=== PATIENT | female | born 1945 | race Caucasian/White ===

== ENCOUNTER 2019-05-21 05:48 | Inpatient (IN) | payer OTHER ==
[2019-05-09 12:43] VITALS: BMI 27.3
[2019-05-21] MEDS ORDERED: MIDAZOLAM HCL 2 MG/2 ML SINGLE DOSE VIAL ONE (07:17)
[2019-05-21] MEDS ORDERED: EPINEPHrine/PF 1 MG/1 ML (1:1,000) AMPULE ONE (07:23)
[2019-05-21] MEDS ORDERED: DEXMEDETOMIDINE HCL 200 MCG/2 ML IVPB ONE (07:23)
[2019-05-21] MEDS ORDERED: LIDOCAINE HCL 1% PRESERVATIVE FREE - 30ML VIAL ONE (07:24)
[2019-05-21] MEDS ORDERED: SODIUM BICARBONATE 8.4% 50 MEQ/50 ML VIAL ONE (07:24)
[2019-05-21] MEDS ORDERED: SCOPOLAMINE HYDROBROMIDE 1 PATCH PATCH.TD72 ONE (07:38)
[2019-05-21] MEDS ORDERED: BUPIVACAINE HCL/PF 0.5% (5MG/ML) 10 ML VIAL ONE (08:19)
[2019-05-21] MEDS ORDERED: LORazepam 0.5 MG TABLET PO PRN (09:21)
[2019-05-21] MEDS ORDERED: diazePAM 2 MG TABLET PO PRN (09:21)
[2019-05-21] MEDS ORDERED: ACETAMINOPHEN 325 MG TABLET (FP) PO PRN (09:22)
[2019-05-21] MEDS ORDERED: HYDROmorphone HCL CARPU-JECT 1 MG/1 ML DISP.SYRIN IVPB PRN (09:25)
[2019-05-21] MEDS ORDERED: PATIENT'S OWN MEDICATION (NON-FORMULARY) (Ramipril [Ramipril] 10 MG) PO SCH (10:00)
[2019-05-21] MEDS ORDERED: DEXAMETHASONE SOD PHOSPHATE 4 MG/1 ML VIAL ONE (10:19)
[2019-05-21] MEDS ORDERED: BUPIVACAINE HCL 0.25% 125 MG/50 ML VIAL ONE (10:19)
[2019-05-21] MEDS ORDERED: BUPIVACAINE HCL/PF 2.5 MG/ML - 30 ML VIAL IJ ONE (10:20)
[2019-05-21] MEDS ORDERED: GUM MASTIC/STORAX/MSAL/ALCOHOL 1 DRP DROPSBTL MC ONE (11:22)
[2019-05-21] MEDS ORDERED: LIDOCAINE 1%/EPI 1:100000 (20 ML MULTI DOSE VIAL) ONE (11:28)
[2019-05-21] MEDS ORDERED: LACTATED RINGERS SOLUTION 1,000 ML IV SCH (11:30)
--- NOTE | 2019-05-21 12:31 | SPEC ---
DATE OF OPERATION: 05/21/2019 PREOPERATIVE DIAGNOSIS: Recurrent complex chronically incarcerated ventral incisional hernia. POSTOPERATIVE DIAGNOSES: Recurrent complex chronically incarcerated ventral incisional hernia, hypertension, hypercholesterolemia, history of thrombophlebitis. PROCEDURE: Open bilateral component separation, repair of recurrent complex ventral incisional hernia with mesh, removal of foreign body, bilateral rectus sheath block (given by surgical dental assistant). SURGEON: John Rabago MD CORPORATE RECYCLING MANAGER: Shad Handy DO ANESTHESIA: Huseyin Gaviria MD (general) ESTIMATED BLOOD LOSS: Minimal. SPECIMEN: Foreign body and hernia sac. INDICATIONS FOR PROCEDURE: This is a 74-year-old female who in 2018 underwent a MARY CARMEN/BSO. She had a general surgeon at the time of that operation, primarily repair of chronically incarcerated umbilical hernia. Within 2 months, that recurred and therefore she was taken back to the operating room by the same general surgeon for a bilateral component separation and repair of a recurrent hernia. She now has a large recurrence in the upper abdomen and is here for a 3rd repair. Patient identified and appropriately positioned on the operative table. After placement of general anesthesia, the abdomen was prepped and draped in the usual sterile fashion with ChloraPrep. The 1st aspect of the incision was performed by Dr. Jeffrey for the abdominal skin mobilization. Please refer to her dictation. At this point, I came in after the skin had been mobilized, the hernia identified in the abdomen as described in the H&P. The hernia sac was then circumferentially isolated with electrocautery. The fascia of the rectus sheath on the right was divided superiorly, the rectus muscle identified. The posterior rectus space was then subsequently entered. In doing so, the old mesh was encountered and this patient had what appeared to be a Bard circular disk mesh. The hernia had eroded above the mesh and recurred at this level. Most of the sac was off to the patient's left side. Given this finding, I thought the old mesh was in the preperitoneal space and therefore the majority of the mesh was left intact in the preperitoneal space. A portion of the mesh had to be sharply excised because it had become too big once the flap was mobilized. This portion of the mesh that was excised was done under direct vision and sent as foreign body. At this point, the posterior rectus space was subsequently developed out laterally with the cautery, portions of where the rectus muscle was adherent to the mesh, the muscle itself was divided with the cautery. Once outside of the old mesh, the fascia of the transversus was identified along with the junction of the obliques and rectus. This was sharply divided. The myofascial separation was then allowed placement of a very large piece of mesh above the transversus. This was taken approximately 5 inches above and below the actual defect. The myofascial separation was done on the patient's right side and a similar approach was then performed on the left. On the left side the retrorectus space was identified by dividing the anterior sheath, the muscle identified and subsequently off the anterior sheath to identify the posterior sheath and then at this point the muscle was bluntly off the posterior sheath, where it was previously attached to the old mesh. This was divided with the cautery as needed. Again, a myofascial separation was done, allowing separation of the junction of the rectus oblique and transversus, and again it was taken approximately 5 inches above and below the actual defect. Once the myofascial separation was completed on both sides, the posterior sheath was then reapproximated, even though the abdominal cavity was not entered, to tighten up the posterior sheath. The piece of mesh that was intact was left in place except for a small portion that was removed due to its overly large size. Next, the defect was measured and a large 50 x 50 (Versatex ) mesh was used for the repair. This hospital did not have a 30 x 30, and this 50 x 50 was cut down to approximately 30 x 30 size. A 16 x 20 piece of AMOS Bio was also used. The 2 pieces of mesh were sewn together in a hybrid fashion with interrupted 3-0 Vicryl sutures. The mesh was placed into the posterior rectus space above the transversus with the AMOS Bio side touching transversus and the Versatex touching the rectus muscle. The mesh fanned out laterally and superiorly and inferiorly in all directions and then anchored with the AbsorbaTack anchor. The mesh was irrigated, the operative field noted to be hemostatic. A preliminary sponge and instrument count was performed and noted to be accurate at this point. The midline fascia was then reapproximated with a running 0 PDS suture. At this point, the sponge and instrument counts were done again and noted to be accurate. Dr. Jeffrey then subsequently finished off the abdominoplasty. Please refer to her dictation. Prior to closure of the midline anterior fascia, the 1st assistant tennis professional performed a bilateral rectus sheath block by giving direct injection into the sheath, a total of 30 mL of 0.25% Marcaine with 4 mg of Decadron. Thomas VELA [id number] cc: Catalina Avila MD MTDFeliz
[2019-05-21] MEDS: D5-1/2NS+20 MEQ KCL - 20 MEQ/1,000 ML INFUS.BAG IV SCH (14:49)
[2019-05-21] MEDS: oxyCODONE HCL 5 MG TABLET PO PRN ×2 (15:46→19:46)
[2019-05-21] MEDS: PANTOPRAZOLE SODIUM 40 MG VIAL IVPUSH SCH (20:24)
[2019-05-21] MEDS: ONDANSETRON 4 MG/2 ML VIAL IVPUSH PRN (20:25)
[2019-05-21] MEDS ORDERED: ATORVASTATIN CA 10 MG TABLET (FP) PO SCH (22:00)
[2019-05-21] MEDS ORDERED: PATIENT'S OWN MEDICATION (NON-FORMULARY) (Simvastatin [Simvastatin] 20 MG) PO SCH (22:00)
[2019-05-21] MEDS ORDERED: IBUPROFEN 400 MG TABLET (FP) PO PRN (22:27)
[2019-05-21] MEDS ORDERED: MAG HYDROX/AL HYDROX/SIMETH 30 ML UNIT-DOSE CUP PO PRN (22:27)
[2019-05-21] MEDS ORDERED: ONDANSETRON 4 MG/2 ML VIAL IVPUSH ONE (23:20)
[2019-05-22] MEDS ORDERED: METOCLOPRAMIDE HCL INJECTION 10 MG/2 ML VIAL IVPUSH ONE (00:30)
[2019-05-22] MEDS: ONDANSETRON 4 MG/2 ML VIAL IVPUSH PRN (06:57)
[2019-05-22] MEDS ORDERED: AMOX TR/POT CLAV 875MG/125MG TABLETS (FP) PO SCH (08:00)
[2019-05-22] MEDS ORDERED: IBUPROFEN 800 MG/8 ML IJ IVPB PRN (09:44)
[2019-05-22] MEDS: PANTOPRAZOLE SODIUM 40 MG VIAL IVPUSH SCH (09:45)
[2019-05-22] MEDS ORDERED: ONDANSETRON 4 MG/2 ML VIAL IVPUSH PRN (09:45)
[2019-05-22] MEDS: D5-1/2NS+20 MEQ KCL - 20 MEQ/1,000 ML INFUS.BAG IV SCH (09:45)
[2019-05-22] MEDS ORDERED: RAMIPRIL 5 MG CAPSULE (FP) PO SCH (10:00)
[2019-05-22] MEDS ORDERED: amLODIPine BESYLATE 2.5 MG TABLET (FP) PO SCH (10:00)
[2019-05-22] MEDS ORDERED: ENOXAPARIN NA (PORCINE) 40 MG/0.4 ML DISP.SYRIN SQ SCH (10:00)
--- NOTE | 2019-05-22 12:18 | PN ---
Progress Note, Physician Chief Complaint: POD1 s/p hernia repair/abdominoplasty - Current Medication List Current Medications: Active Medications Acetaminophen (Tylenol -) 650 mg PO Q4H PRN PRN Reason: FEVER Al Hydroxide/Mg Hydroxide (Mylanta Oral Suspension -) 30 ml PO Q6H PRN PRN Reason: INDIGESTION Amlodipine Besylate (Norvasc -) 2.5 mg PO DAILY [facility] Last Admin: 05/22/19 09:45 Dose: 2.5 mg Amoxicillin/Clavulanate Potassium (Augmentin - 875mg Tablet) 1 tab PO BIDWM [facility] Last Admin: 05/22/19 09:42 Dose: Not Given Atorvastatin Calcium (Lipitor -) 10 mg PO HS [facility] Last Admin: 05/21/19 22:58 Dose: Not Given Diazepam (Valium -) 4 mg PO PRN PRN PRN Reason: ANXIETY Enoxaparin Sodium (Lovenox -) 40 mg SQ DAILY [facility] Last Admin: 05/22/19 09:46 Dose: Not Given Hydromorphone HCl (Dilaudid Injection -) 1 mg IVPB Q3H PRN PRN Reason: PAIN LEVEL 7 - 10 Lactated Ringer's (Lactated Ringers Solution) 1,000 mls @ 125 mls/hr IV ASDIR [facility] Ibuprofen (Motrin -) 800 mg PO Q6H PRN PRN Reason: PAIN LEVEL 4-6 Ibuprofen (Caldolor Injection -) 800 mg IVPB Q6H PRN PRN Reason: PAIN 1-5 Lorazepam (Ativan -) 0.5 mg PO DAILY PRN PRN Reason: INSOMNIA Last Admin: 05/22/19 02:16 Dose: 0.5 mg Ondansetron HCl (Zofran Injection) 4 mg IVPUSH Q6H PRN PRN Reason: NAUSEA AND/OR VOMITING Oxycodone HCl (Roxicodone -) 7.5 mg PO Q4H PRN PRN Reason: PAIN LEVEL 4 - 6 Last Admin: 05/21/19 19:46 Dose: 7.5 mg Pantoprazole Sodium (Protonix Iv) 40 mg IVPUSH DAILY [facility] Last Admin: 05/22/19 09:45 Dose: 40 mg Ramipril (Altace -) 10 mg PO DAILY [facility] Last Admin: 05/22/19 09:45 Dose: 10 mg - Objective Vital Signs: Vital Signs Temperature 97.8 F 05/22/19 05:55 Pulse Rate 101 H 05/22/19 05:55 Respiratory Rate 19 05/22/19 05:55 Blood Pressure 168/88 05/22/19 05:55 O2 Sat by Pulse Oximetry (%) 95 05/22/19 08:22 Assessment/Plan Pt's pain was well-controlled overnight, but had N/V, which at this point is mostly resolved. She is able to ambulate without issue, and is looking forwarwd to being discharged this afternoon. VSS, no anesthetic complications/ issues noted
--- NOTE | 2019-05-22 13:53 | DS ---
DATE OF ADMISSION: 05/21/2019 DATE OF DISCHARGE: 05/22/2019 ADMITTING DIAGNOSIS: Complex incisional hernia, recurrent. DISCHARGE DIAGNOSIS: Complex incisional hernia, recurrent. BRIEF HISTORY: This 74-year-old female went to [facility] for surgical management of a complex, recurrent incisional hernia. She underwent a repair of this hernia utilizing component separation, myofascial release, and mesh. Please reference Dr. John Rabago's operative note from May 21. She also underwent an abdominoplasty by Dr. Jeffrey. Please reference that operative note as well. Postoperatively, she is doing well. She is ambulating, voiding. She is tolerating diet, and her pain is well controlled with oral analgesics. She will go home today, May 22. She will go home on a regular diet. She has a new prescription for Percocet which she will take as needed for pain. She will resume her usual home medications of Norvasc, Zyrtec, Valium, lorazepam, Prilosec, oxybutynin, Ramipril, and simvastatin. She will empty her Bowen-Rogers drains daily and record their amount or sooner when full. She will sponge bathe. She will follow with Dr. Jeffrey regarding drain removal as well as Wound Care. She should make an appointment within the next week. She will follow with Dr. Rabago in approximately 2-3 weeks' time for her postoperative check. She will not lift anything more than [address] She is okay to walk, okay to climb stairs. At the time of her discharge, she is afebrile. DO ABBIE TERRY/[id number]
[2019-05-22 14:34] VITALS: BP 150/70; PULSE 100; TEMP 98.7
--- NOTE | 2019-05-26 13:03 | PATH ---
Surgical Pathology Report Patient Name: KAY ALVAREZ Med. Rec. #: [id number] /Age/Gender: 1945 (Age: 74) / F Account: [id number] Location: [facility] MED-SURG Taken: 05/21/2019 Received: 05/21/2019 Reported: 05/26/2019 Physicians: John Rabago Specimen(s) Received A: HERNIA SAC WITH FOREIGN BODY B: ABDOMINAL SKIN AND TISSUE (GROSS ONLY) Clinical History Bilateral component, separation of complex incarcerated ventral hernia, repair Final Diagnosis A. HERNIA SAC WITH FOREIGN BODY, REPAIR: FIBROCOLLAGENOUS TISSUE WITH SKELETAL MUSCLE SHOWING CHRONIC INFLAMMATION, FOREIGN BODY GIANT CELL REACTION AND GRANULATION TISSUE FORMATION. MESH MATERIAL, DESCRIBED (GROSS EXAMINATION ONLY). B. ABDOMINAL SKIN AND TISSUE, ABDOMINOPLASTY: SKIN AND ADIPOSE TISSUE, DESCRIBED (GROSS EXAMINATION ONLY). Electronically Signed Jayna Cam M.D. Gross Description A. Received in formalin, labeled "hernia sac with foreign body" is a 6.8 x 5.5 x 1.0 cm portion of fibromembranous tissue with adipose tissue at one aspect. Also received is a 4.4 x 0.9 x 0.3 cm portion of mesh material. Powerplant Operator sections are submitted in one cassette (gross examination only of mesh material). B. Received in formalin, labeled "abdominal skin and tissue" is a 37.5 x 17.6 cm portion of light mcclendon skin excised to a depth of 2.3 cm. No gross lesions are identified. For gross examination only. AE/05/22/2019 ebram/05/22/2019
[2019-05-30] MEDS ORDERED: PIPERACILLIN/TAZOB 3.375 GM 3.375 GM in DEXTROSE 5%-WATER - 50 ML IVPB SCH (04:00)
== END 2019-05-22 15:53 | disposition home or self-care (01) | DRG 355 ==
LOC: FASU 05:48 → FM/S 09:22
PROVIDERS: ADMIT Surgery; ATTEND Surgery
PROC: 0JC80ZZ Extirpation of Matter from Abdomen Subcutaneous Tissue and Fascia, Open Approach (ICD-10-PCS; 2019-05-21)
PROC: 0WUF0JZ Supplement Abdominal Wall with Synthetic Substitute, Open Approach (ICD-10-PCS; principal; 2019-05-21 08:34)
PROC: 0WPF0JZ Removal of Synthetic Substitute from Abdominal Wall, Open Approach (ICD-10-PCS; 2019-05-21 08:34)
DX: K43.0 Incisional hernia with obstruction, without gangrene (principal); I10 Essential (primary) hypertension; E78.00 Pure hypercholesterolemia, unspecified; E86.0 Dehydration; D72.829 Elevated white blood cell count, unspecified; K21.9 Gastro-esophageal reflux disease without esophagitis
CPT/HCPCS: 88300-TC; 88304-TC; 94760; 97116-GP; 97161-GP

== ENCOUNTER 2019-05-29 17:24 | Inpatient (IN) | payer OTHER ==
[2019-05-29 17:28] VITALS: BMI 27.3
[2019-05-29] MEDS ORDERED: SODIUM CHLORIDE 1,000 ML IV STA ×2 (18:02→23:08)
--- NOTE | 2019-05-29 18:02 | PDOC ---
History of Present Illness - General Chief Complaint: Weakness Stated Complaint: WEAKNESS Time Seen by Provider: 05/29/19 17:53 - History of Present Illness Initial Comments: 05/31/19 21:38 Chief complaint: Generalized weakness and fatigue HPI: Patient had a repair of a ventral hernia with mesh, as well as a tummy tuck at the same time, approximately 1 week ago. Discharge from the hospital 2 days ago. Was feeling well, but this morning suddenly felt worse, with vague symptoms of generalized weakness, fatigue, and lack of well-being. She contacted her surgeon, Dr. Jeffrey, who instructed her to come to the emergency room for blood work and who will see her in the ER for evaluation. Review of systems: She denies fever/chills, abdominal pain, vomiting, diarrhea. Urinary tract symptoms, vaginal bleeding or discharge, hematemesis, melena, bloody stool, headache, URI symptoms, sore throat, cough. Remainder of systems reviewed and negative Physical exam: Afebrile, vital signs normal. Alert and oriented well-developed well-nourished no acute distress No pallor or icterus. PERRLA, fundi benign, ENT clear Neck supple without bruit mass or nodes Lungs clear to P&A CV regular without murmur rub or gallop Abdomen nondistended. Bowel sounds normal. Soft without mass tenderness organomegaly. Wound dressing is in place and 2 drains are relatively dry, without blood or pus. Neurologically intact Impression: Vague systemic symptoms, rule out wound infection or abscess, sepsis. Plan: CBC, chemistries, blood cultures, and further evaluation by surgery. Signed out to Dr. Keys at 7 PM pending surgical consultation. Past History - Past Medical History Allergies/Adverse Reactions: Allergies Allergy/AdvReac Type Severity Reaction Status Date / Time ciprofloxacin [From Cipro] AdvReac Vomiting Verified 05/29/19 17:25 morphine AdvReac Vomiting Verified 05/29/19 17:25 seasonal Allergy Uncoded 05/29/19 17:25 Home Medications: Ambulatory Orders Amlodipine Besylate 2.5 mg PO DAILY 05/09/19 Cetirizine HCl [Zyrtec -] 10 mg PO DAILY PRN 05/09/19 Lorazepam 0.5 mg PO DAILY PRN 05/09/19 Omeprazole 20 mg PO AM 05/09/19 Oxybutynin Chloride 5 mg PO DAILY 05/09/19 Ramipril 10 mg PO DAILY 05/09/19 Simvastatin 20 mg PO HS 05/09/19 Amox-Tr/K Cl [Augmentin 875-125mg Tablet -] 1 tab PO BIDWM #14 tablet 05/22/19 Ibuprofen [Motrin -] 800 mg PO Q6H PRN tablet 05/22/19 Anemia: No Asthma: No Cancer: No Cardiac Disorders: No CVA: No COPD: No CHF: No Dementia: No Diabetes: No GI Disorders: Yes (acid reflux, hernia) Disorders: No HTN: Yes Hypercholesterolemia: Yes Liver Disease: No Seizures: No Thyroid Disease: No - Surgical History Abdominal Surgery: Yes (hernia repair x2) Appendectomy: Yes Cardiac Surgery: No Cholecystectomy: Yes Lung Surgery: No Neurologic Surgery: No Orthopedic Surgery: Yes (vitaly knee arthroscopy) - Psycho Social/Smoking Cessation Hx Smoking History: Never smoked Have you smoked in the past 12 months: No If you are a former smoker, when did you quit?: 30 y ago Information on smoking cessation initiated: No Hx Alcohol Use: No Drug/Substance Use Hx: No Substance Use Type: Alcohol Hx Substance Use Treatment: No *Physical Exam - Vital Signs Last Vital Signs Temp Pulse Resp BP Pulse Ox 98.3 F 121 H 18 147/84 97 05/29/19 17:25 05/29/19 17:25 05/29/19 17:25 05/29/19 17:25 05/29/19 17:25 ED Treatment Course - LABORATORY CBC & Chemistry Diagram: 05/31/19 10:09 05/31/19 10:09 Discharge - Discharge Information Problems reviewed: Yes Clinical Impression/Diagnosis: Dehydration, H/O ventral hernia repair, S/P abdominoplasty Abdominal pain Qualifiers: Abdominal location: generalized Qualified Code(s): R10.84 - Generalized abdominal pain Condition: Stable - Admission Yes - Follow up/Referral - Patient Discharge Instructions - Post Discharge Activity
[2019-05-29 18:52] LABS: ALBUMIN 3.5 g/dl (3.4-5.0); BILIRUBIN,TOTAL 0.7 mg/dl (0.2-1); CALCIUM 8.4 mg/dl (8.5-10); CREATININE 0.7 mg/dl (0.55-1.3); TOT PROT 6.8 g/dl (6.4-8.2)
[2019-05-29 19:09] LABS: BASO % 1.4 % (0-2.0); EOS % 0.6 % (0-4.5); HEMATOCRIT 32.1 % (32.4-45.2); HEMOGLOBIN 10.7 GM/dl (10.7-15.3); LYMPH % 5.3 % (8-40); MCH 30.3 pg (25.7-33.7); MCHC 33.4 g/dl (32.0-36.0); MEAN CELL VOLUME 90.7 fl (80-96); MEAN PLT VOLUME 7.9 fl (7.5-11.1); MONO % 3.5 % (3.8-10.2); NEUT % 89.2 % (42.8-82.8); PLATELET COUNT 421 K/MM3 (134-434); RBC 3.54 M/mm3 (3.60-5.2); RDW 13.1 % (11.6-15.6); WHITE BLOOD COUNT 12.4 K/mm3 (4.0-10.8)
--- NOTE | 2019-05-29 19:55 | PDOC ---
*Physical Exam - Vital Signs Last Vital Signs Temp Pulse Resp BP Pulse Ox 97.8 F 98 H 16 152/78 98 05/29/19 18:55 05/29/19 18:55 05/29/19 18:55 05/29/19 18:55 05/29/19 18:55 ED Treatment Course - LABORATORY CBC & Chemistry Diagram: 05/29/19 18:15 05/29/19 18:15 - ADDITIONAL ORDERS Additional order review: Laboratory Results 05/29/19 05/29/19 05/29/19 18:15 18:15 18:00 Sodium 135 L Potassium 4.0 Chloride 103 Carbon Dioxide 24 Anion Gap 8 BUN 11.0 Creatinine 0.7 Est GFR (CKD-EPI)AfAm 99.62 Est GFR (CKD-EPI)NonAf 85.95 Random Glucose 109 H Calcium 8.4 L Total Bilirubin 0.7 AST 38 H ALT 39 Alkaline Phosphatase 118 H Creatine Kinase 69 Troponin I < 0.03 Total Protein 6.8 Albumin 3.5 Urine Color Yellow Urine Appearance Clear Urine pH 5.5 Urine Protein 1+ H Urine Glucose (UA) Negative Urine Ketones 3+ H Urine Blood Negative Urine Nitrite Negative Urine Bilirubin Negative Urine Urobilinogen 0.2 Ur Leukocyte Esterase Negative Urine RBC 0-2 Urine WBC 0-2 Urine Bacteria Few 05/29/19 18:15 RBC 3.54 L MCV 90.7 MCHC 33.4 RDW 13.1 MPV 7.9 Neutrophils % 89.2 H Lymphocytes % 5.3 L Monocytes % 3.5 L Eosinophils % 0.6 Basophils % 1.4 - Medications Given in the ED: ED Medications Discontinued Medications Generic Name Dose Route Start Last Admin Trade Name Freq PRN Reason Stop Dose Admin Sodium Chloride 1,000 mls @ 1,000 mls/hr 05/29/19 18:02 05/29/19 18:25 Normal Saline - IV 05/29/19 19:01 1,000 mls/hr ASDIR STA Administration Medical Decision Making - Medical Decision Making 05/29/19 19:53 pt signed out from Dr Max at 7pm pending labs/workup/reeval and surg eval Vital Signs Temp Pulse Resp BP Pulse Ox 97.8 F 98 H 16 152/78 98 05/29/19 18:55 05/29/19 18:55 05/29/19 18:55 05/29/19 18:55 05/29/19 18:55 In summary, 74-year-old female status post ventral hernia repair and tummy tuck with surgeons Dr. Faye and Dr. Sakshi waller, respectively. Patient is awaiting consultation evaluation by surgical appliance fitter this evening. Laboratory work results are reviewed and generally within normal limits, mild leukocytosis noted 12 K otherwise no systemic features. Initial tachycardia has improved, afebrile. Patient was given IVF, cultures pending. 05/29/19 20:00 on reeval - pt c/o malaise and feeling unwell supposed to be on augmentin after surgery, but stopped taking on her own volition x 4 days because it did not sit well with her stomach will given IV unasyn, analgesia, IV tylenol, reassess Abdomen exam with DENISA drains in place, surgical sites healing primary doctor: Dr Betzaida Acevedo seen by Dr Johnson at bedside, DENISA drains removed pt feels improved agree with plan for overnight observation, hydration, recheck labs in the AM, supportive care, IV abx will be seen with Dr Faye and Dr Jeffrey in the AM for reeval/serial exam and surgical sites. admit to hospitalist. Dr Wallace, s/o to ELICIA Sandoval with care 05/29/19 20:56 05/29/19 21:44 05/29/19 21:44 Discharge - Discharge Information Problems reviewed: Yes Clinical Impression/Diagnosis: Dehydration, H/O ventral hernia repair, S/P abdominoplasty Abdominal pain Qualifiers: Abdominal location: generalized Qualified Code(s): R10.84 - Generalized abdominal pain Condition: Stable - Admission Yes - Follow up/Referral - Patient Discharge Instructions - Post Discharge Activity
[2019-05-29] MEDS ORDERED: ACETAMINOPHEN 1000 MG/100 ML VIAL (NON FORMULARY) IVPB ONE (20:16)
[2019-05-29] MEDS ORDERED: AMPICILLIN NA/SULBACTAM NA 1.5 GM in SODIUM CHLORIDE 100 ML IVPB ONE (20:16)
[2019-05-29] MEDS ORDERED: ACETAMINOPHEN INJECTION 100 ML IVPB ONE (20:28)
[2019-05-29] MEDS ORDERED: AMPICILLIN NA/SULBACTAM NA 1.5 GM VIAL ONE (20:28)
[2019-05-29] MEDS ORDERED: SODIUM CHLORIDE 1,000 ML IV SCH (20:30)
--- NOTE | 2019-05-29 21:51 | HP ---
CHIEF COMPLAINT: Weakness PCP: Dr. Betzaida Acevedo Surgeons: Dr. Rabago, Dr. Chavez HISTORY OF PRESENT ILLNESS: 74 year-old female with a PMH significant for HTN, HLD, thrombophlebitis, GERD, anxiety, and a chronically incarcerated recurrent ventral hernia s/p multiple repairs, most recently on 05/21/[address] Rabago. At the same time patient underwent an abdominoplasty with Dr. Miranda. She was discharged on 05/22 with two DENISA drains in place and with a prescription for augmentin for 7 days. Patient stopped taking the augmentin after 2-3 days due to stomach upset. She has been emptying her drains of thin, reddish/pinkish fluid, has not seen any pus. ER course was notable for: (1) WBC 12.4k, p121 (2) Unasyn x 1; NS x 1L Recent Travel: No PAST MEDICAL HISTORY: Hypertension Hyperlipidemia Thrombophlebitis GERD Anxiety PAST SURGICAL HISTORY: [facility] (April 2018, Umbilicial hernia repair (April 2018, revised June 2018, [facility]) Hernia repair and abdominoplasty 05/21/19 (Mandi Rabago [place]) Bilateral knee arthroscopy Cholecystectomy Appendectomy Social History: Smoking: no Alcohol: social Drugs: no Allergies ciprofloxacin [From Cipro] Adverse Reaction (Verified 05/29/19 17:25) Vomiting morphine Adverse Reaction (Verified 05/29/19 17:25) Vomiting seasonal Allergy (Uncoded 05/29/19 17:25) HOME MEDICATIONS: Home Medications Medication Instructions Recorded Amlodipine Besylate 2.5 mg PO DAILY 05/09/19 Cetirizine HCl [Zyrtec -] 10 mg PO DAILY PRN 05/09/19 Lorazepam 0.5 mg PO DAILY PRN 05/09/19 Omeprazole 20 mg PO AM 05/09/19 Oxybutynin Chloride 5 mg PO DAILY 05/09/19 Ramipril 10 mg PO DAILY 05/09/19 Simvastatin 20 mg PO HS 05/09/19 Amox-Tr/K Cl [Augmentin 875-125mg 1 tab PO BIDWM #14 tablet 05/22/19 Tablet -] Ibuprofen [Motrin -] 800 mg PO Q6H PRN tablet 05/22/19 REVIEW OF SYSTEMS CONSTITUTIONAL: +fever at home 100.6, weakness, fatigue, loss of appetite Absent: chills, diaphoresis, weight change HEENT: Absent: rhinorrhea, nasal congestion, throat pain, throat swelling, difficulty swallowing, mouth swelling, ear pain, eye pain, visual changes CARDIOVASCULAR: Absent: chest pain, syncope, palpitations, irregular heart rate, lightheadedness , peripheral edema RESPIRATORY: Absent: cough, shortness of breath, dyspnea with exertion, orthopnea, wheezing, stridor, hemoptysis GASTROINTESTINAL: Absent: abdominal pain, abdominal distension, nausea, vomiting, diarrhea, constipation, melena, hematochezia GENITOURINARY: Absent: dysuria, frequency, urgency, hesitancy, hematuria, flank pain, genital pain MUSCULOSKELETAL: Absent: myalgia, arthralgia, joint swelling, back pain, neck pain SKIN: Absent: rash, itching, pallor HEMATOLOGIC/IMMUNOLOGIC: Absent: easy bleeding, easy bruising, lymphadenopathy, frequent infections ENDOCRINE: Absent: unexplained weight gain, unexplained weight loss, heat intolerance, cold intolerance NEUROLOGIC: +headache Absent: headache, focal weakness or paresthesias, dizziness, unsteady gait, seizure, mental status changes, bladder or bowel incontinence PSYCHIATRIC: Absent: anxiety, depression, suicidal or homicidal ideation, hallucinations. PHYSICAL EXAMINATION Vital Signs - 24 hr 05/29/19 05/29/19 17:25 18:55 Temperature 98.3 F 97.8 F Pulse Rate 121 H Pulse Rate [ 98 H Left Apical] Respiratory 18 16 Rate Blood Pressure 147/84 Blood Pressure 152/78 [Left Arm] O2 Sat by Pulse 97 98 Oximetry (%) GENERAL: Awake, alert, and fully oriented, in no acute distress. HEAD: Normal with no signs of trauma. EYES: Pupils equal, round and reactive to light, extraocular movements intact, sclera anicteric, conjunctiva clear. LUNGS: Breath sounds equal, clear to auscultation bilaterally. No wheezes, and no crackles. No accessory muscle use. HEART: Regular rate and rhythm, S1 and S2 ABDOMEN: Transverse lower abdominal incision, sutures intact, edges well- approximated, no exudate, no erythema, no fluctuance; scant serosanguinous drainage from two removed DENISA drain sites on distal ends + MUSCULOSKELETAL: Normal range of motion at all joints. No bony deformities or tenderness. No CVA tenderness. UPPER EXTREMITIES: 2+ pulses, warm, well-perfused. No cyanosis. No clubbing. No peripheral edema. LOWER EXTREMITIES: 2+ pulses, warm, well-perfused. No calf tenderness. No peripheral edema. NEUROLOGICAL: Cranial nerves II-XII intact. Normal speech. Laboratory Results - last 24 hr 05/29/19 05/29/19 05/29/19 18:00 18:15 18:15 WBC RBC Hgb Hct MCV MCH MCHC RDW Plt Count MPV Absolute Neuts (auto) Neutrophils % Lymphocytes % Monocytes % Eosinophils % Basophils % Sodium Potassium Chloride Carbon Dioxide Anion Gap BUN Creatinine Est GFR (CKD-EPI)AfAm Est GFR (CKD-EPI)NonAf Random Glucose Calcium Total Bilirubin AST ALT Alkaline Phosphatase Creatine Kinase Troponin I < 0.03 Total Protein Albumin Lipase 105 Urine Color Yellow Urine Appearance Clear Urine pH 5.5 Urine Protein 1+ H Urine Glucose (UA) Negative Urine Ketones 3+ H Urine Blood Negative Urine Nitrite Negative Urine Bilirubin Negative Urine Urobilinogen 0.2 Ur Leukocyte Esterase Negative Urine RBC 0-2 Urine WBC 0-2 Urine Bacteria Few 05/29/19 05/29/19 18:15 18:15 WBC 12.4 H RBC 3.54 L Hgb 10.7 Hct 32.1 L MCV 90.7 MCH 30.3 MCHC 33.4 RDW 13.1 Plt Count 421 MPV 7.9 Absolute Neuts (auto) 11.0 Neutrophils % 89.2 H Lymphocytes % 5.3 L Monocytes % 3.5 L Eosinophils % 0.6 Basophils % 1.4 Sodium 135 L Potassium 4.0 Chloride 103 Carbon Dioxide 24 Anion Gap 8 BUN 11.0 Creatinine 0.7 Est GFR (CKD-EPI)AfAm 99.62 Est GFR (CKD-EPI)NonAf 85.95 Random Glucose 109 H Calcium 8.4 L Total Bilirubin 0.7 AST 38 H ALT 39 Alkaline Phosphatase 118 H Creatine Kinase 69 Troponin I Total Protein 6.8 Albumin 3.5 Lipase Urine Color Urine Appearance Urine pH Urine Protein Urine Glucose (UA) Urine Ketones Urine Blood Urine Nitrite Urine Bilirubin Urine Urobilinogen Ur Leukocyte Esterase Urine RBC Urine WBC Urine Bacteria ASSESSMENT/PLAN: 74 year-old female with a PMH significant for HTN, HLD, thrombophlebitis, GERD, anxiety, and a chronically incarcerated recurrent ventral hernia s/p multiple repairs, most recently on 05/21/19 with abdominoplasty. Sepsis s/p complex hernia repair and abdominoplasty --POD #8 --T100.6, WBC 12.4k, p121 on admission --DENISA drains removed in ED --start Zosyn; ID consult --NS x 1L bolus now --lactic acid pending Hypertension --hold anti-hypertensives for now due to possible sepsis Hyperlipidemia --hold PO meds for now Thrombophlebitis --not on meds GERD --hold PO meds for now Anxiety --continue lorazepam FEN Fluids: NS@100mL/hr Electrolytes: replete as indicated Nutrition: NPO after midnight DVT prophylaxis: SCDs, oob, ambulation Physical therapy Dispo: continues to require inpatient care. Full code. Visit type - Emergency Visit Emergency Visit: Yes ED Registration Date: 05/29/19 Care time: The patient presented to the Emergency Department on the above date and was hospitalized for further evaluation of their emergent condition. - New Patient This patient is new to me today: Yes Date on this admission: 05/29/19 - Critical Care Critical Care patient: No
[2019-05-30] MEDS ORDERED: PIPERACILLIN/TAZOBACTAM 3.375 GM VIAL IVPB ONE ×3 (03:08→17:52)
[2019-05-30] MEDS ORDERED: DEXTROSE 5%-WATER - 50 ML IVPB ONE ×3 (03:08→17:53)
[2019-05-30] MEDS: PIPERACILLIN/TAZOB 3.375 GM 3.375 GM in DEXTROSE 5%-WATER - 50 ML IVPB SCH ×3 (03:15→18:01)
[2019-05-30] MEDS ORDERED: PIPERACILLIN/TAZOB 3.375 GM 3.375 GM in DEXTROSE 5%-WATER - 50 ML IVPB SCH (04:00)
[2019-05-30 08:06] LABS: BASO % 0.3 % (0-2.0); EOS % 0.5 % (0-4.5); HEMATOCRIT 28.4 % (32.4-45.2); HEMOGLOBIN 9.8 GM/dl (10.7-15.3); LYMPH % 5.2 % (8-40); MCHC 34.3 g/dl (32.0-36.0); MEAN CELL VOLUME 90.3 fl (80-96); MEAN PLT VOLUME 7.5 fl (7.5-11.1); MONO % 4.6 % (3.8-10.2); NEUT % 89.4 % (42.8-82.8); PLATELET COUNT 343 K/MM3 (134-434); RBC 3.15 M/mm3 (3.60-5.2); RDW 12.9 % (11.6-15.6); WHITE BLOOD COUNT 14.5 K/mm3 (4.0-10.8)
[2019-05-30 08:13] LABS: ALBUMIN 2.8 g/dl (3.4-5.0); CALCIUM 7.7 mg/dl (8.5-10); CREATININE 0.7 mg/dl (0.55-1.3); MAGNESIUM 1.8 mg/dL (1.8-2.4); PHOSPHOROUS 2.9 mg/dl (2.5-4.9); POTASSIUM 3.7 mmol/L (3.5-5.1); TOT PROT 5.5 g/dl (6.4-8.2)
[2019-05-30 08:18] LABS: ACTIVATED PTT 25.5 SECONDS (25.2-36.5)
[2019-05-30] MEDS ORDERED: ACETAMINOPHEN 325 MG TABLET (FP) ONE (08:20)
[2019-05-30 08:23] LABS: INR 1.22 (0.82-1.09); PROTHROMBIN TIME (PATIENT) 13.6 SEC (10.2-13.0)
[2019-05-30] MEDS: ACETAMINOPHEN 325 MG TABLET (FP) PO PRN (08:30)
--- NOTE | 2019-05-30 08:31 | PN ---
Physical Exam: SUBJECTIVE: Patient seen and examined at bedside. Visitor present. Feels better , no fever, sweats, chills. No complaints of pain. OBJECTIVE: Vital Signs Period Temp Pulse Resp BP Sys/[place] Pulse Ox Last 24 Hr 97.8 F-98.5 F 96-121 16-18 147-167/72-84 94-98 GENERAL: The patient is awake, alert, and fully oriented, in no acute distress. ABDOMEN: Soft, nondistended, surgical dressing c/d/i EXTREMITIES: 2+ pulses, warm, well-perfused, no edema. NEUROLOGICAL: Cranial nerves II through XII grossly intact. Normal speech, gait not observed. Laboratory Results - last 24 hr 05/29/19 05/29/19 05/29/19 18:00 18:15 18:15 WBC RBC Hgb Hct MCV MCH MCHC RDW Plt Count MPV Absolute Neuts (auto) Neutrophils % Lymphocytes % Monocytes % Eosinophils % Basophils % PT with INR INR PTT (Actin FS) Sodium Potassium Chloride Carbon Dioxide Anion Gap BUN Creatinine Est GFR (CKD-EPI)AfAm Est GFR (CKD-EPI)NonAf Random Glucose Lactic Acid Calcium Total Bilirubin AST ALT Alkaline Phosphatase Creatine Kinase Troponin I < 0.03 Total Protein Albumin Lipase 105 Urine Color Yellow Urine Appearance Clear Urine pH 5.5 Urine Protein 1+ H Urine Glucose (UA) Negative Urine Ketones 3+ H Urine Blood Negative Urine Nitrite Negative Urine Bilirubin Negative Urine Urobilinogen 0.2 Ur Leukocyte Esterase Negative Urine RBC 0-2 Urine WBC 0-2 Urine Bacteria Few 05/29/19 05/29/19 05/29/19 18:15 18:15 22:30 WBC 12.4 H RBC 3.54 L Hgb 10.7 Hct 32.1 L MCV 90.7 MCH 30.3 MCHC 33.4 RDW 13.1 Plt Count 421 MPV 7.9 Absolute Neuts (auto) 11.0 Neutrophils % 89.2 H Lymphocytes % 5.3 L Monocytes % 3.5 L Eosinophils % 0.6 Basophils % 1.4 PT with INR INR PTT (Actin FS) Sodium 135 L Potassium 4.0 Chloride 103 Carbon Dioxide 24 Anion Gap 8 BUN 11.0 Creatinine 0.7 Est GFR (CKD-EPI)AfAm 99.62 Est GFR (CKD-EPI)NonAf 85.95 Random Glucose 109 H Lactic Acid 0.8 Calcium 8.4 L Total Bilirubin 0.7 AST 38 H ALT 39 Alkaline Phosphatase 118 H Creatine Kinase 69 Troponin I Total Protein 6.8 Albumin 3.5 Lipase Urine Color Urine Appearance Urine pH Urine Protein Urine Glucose (UA) Urine Ketones Urine Blood Urine Nitrite Urine Bilirubin Urine Urobilinogen Ur Leukocyte Esterase Urine RBC Urine WBC Urine Bacteria 05/30/19 07:20 WBC RBC Hgb Hct MCV MCH MCHC RDW Plt Count MPV Absolute Neuts (auto) Neutrophils % Lymphocytes % Monocytes % Eosinophils % Basophils % PT with INR 13.6 H INR 1.22 PTT (Actin FS) 25.5 Sodium Potassium Chloride Carbon Dioxide Anion Gap BUN Creatinine Est GFR (CKD-EPI)AfAm Est GFR (CKD-EPI)NonAf Random Glucose Lactic Acid Calcium Total Bilirubin AST ALT Alkaline Phosphatase Creatine Kinase Troponin I Total Protein Albumin Lipase Urine Color Urine Appearance Urine pH Urine Protein Urine Glucose (UA) Urine Ketones Urine Blood Urine Nitrite Urine Bilirubin Urine Urobilinogen Ur Leukocyte Esterase Urine RBC Urine WBC Urine Bacteria Active Medications Generic Name Dose Route Start Last Admin Trade Name Freq PRN Reason Stop Dose Admin Sodium Chloride 1,000 mls @ 100 mls/hr 05/29/19 20:30 05/29/19 20:40 Normal Saline - IV 100 mls/hr ASDIR RYAN Administration Piperacillin Sod/Tazobactam 50 mls @ 100 mls/hr 05/30/19 04:00 Sod 3.375 gm/ Dextrose IVPB Q8H-IV RYAN Protocol Piperacillin Sod/Tazobactam 50 mls @ 100 mls/hr 05/30/19 04:00 05/30/19 03:15 Sod 3.375 gm/ Dextrose IVPB 05/30/19 18:29 100 mls/hr Q8H-IV RYAN Administration Protocol Lorazepam 0.5 mg 05/29/19 23:09 05/30/19 00:00 Ativan - PO 0.5 mg HS PRN Administration ANXIETY ASSESSMENT/PLAN: 74 year-old female with a PMH significant for HTN, HLD, thrombophlebitis, GERD, anxiety, and a chronically incarcerated recurrent ventral hernia s/p multiple repairs, most recently on 05/21/19 with abdominoplasty. Sepsis s/p complex hernia repair and abdominoplasty --POD #9 --T100.6, WBC 12.4k, p121 on admission; lactic acid wnl --WBC trending up 14.5k; still tachycardic --continue Zosyn (day #1); ID consult pending Hypertension --start home amlodipine, ramipril Hyperlipidemia --start home simvastatin Thrombophlebitis --not on meds GERD --start protonix Anxiety --continue lorazepam FEN Fluids: PO intake adequate Electrolytes: replete as indicated Nutrition: regular diet DVT prophylaxis: subq lovenox, oob, ambulation Physical therapy Dispo: continues to require inpatient care. Full code. Visit type - Emergency Visit Emergency Visit: Yes ED Registration Date: 05/29/19 Care time: The patient presented to the Emergency Department on the above date and was hospitalized for further evaluation of their emergent condition. - New Patient This patient is new to me today: No - Critical Care Critical Care patient: No
[2019-05-30] MEDS ORDERED: PATIENT'S OWN MEDICATION (NON-FORMULARY) (Cetirizine Hcl 10 MG) PO PRN (10:18)
[2019-05-30] MEDS ORDERED: PATIENT'S OWN MEDICATION (NON-FORMULARY) (Ramipril [Ramipril] 10 MG) PO SCH (10:30)
[2019-05-30] MEDS ORDERED: OXYBUTYNIN CHLORIDE 5 MG TABLET PO SCH (10:30)
[2019-05-30] MEDS: PANTOPRAZOLE 20 MG TABLET (FP) PO SCH (11:02)
[2019-05-30] MEDS: RAMIPRIL 5 MG CAPSULE (FP) PO SCH (11:04)
[2019-05-30] MEDS: amLODIPine BESYLATE 2.5 MG TABLET (FP) PO SCH (11:04)
[2019-05-30] MEDS: ENOXAPARIN NA (PORCINE) 40 MG/0.4 ML DISP.SYRIN SQ SCH ×2 (11:49→13:48)
--- NOTE | 2019-05-30 14:19 | EKG ---
Test Reason : Blood Pressure : / mmHG Vent. Rate : 111 BPM Atrial Rate : 111 BPM P-R Int : 120 ms QRS Dur : 070 ms QT Int : 328 ms P-R-T Axes : 064 050 039 degrees QTc Int : 446 ms SINUS TACHYCARDIA NO PREVIOUS ECGS AVAILABLE Confirmed by VICENTE DURAN MD ([id number]) on 05/30/2019 2:18:16 PM Referred By: DR NATION Confirmed By:VICENTE DURAN MD
[2019-05-30] MEDS: OXYBUTYNIN CHLORIDE 5 MG TABLET PO SCH (14:30)
--- NOTE | 2019-05-30 14:48 | PN ---
Progress Note (short form) - Note Progress Note: surgery pt seen and examined. 9 days s/p complex ventral hernia repair and abdominoplasty. was doing well, pain free, tolerating diet until yesterday when suddenly felt lousy with fatigue, one loose bm, and loss of appetite. wbc 14 abd- soft, skin clean, no fluctuance or cellulitis, minimal tenderness, nd ext- no jadyn Plan- unclear source of low grade fever and leukocytosis. ?viral. low suspicion for intra-abdominal pathology or mesh involvement. agree with unasyn empirically. expect wbc to improve tomorrow. cultures pending. pt is non toxic.
[2019-05-30] MEDS: LORATADINE 10 MG TABLET PO PRN (21:36)
[2019-05-30] MEDS: ATORVASTATIN CA 10 MG TABLET (FP) PO SCH (21:36)
[2019-05-30] MEDS: LORazepam 0.5 MG TABLET PO PRN ×2 (21:36)
[2019-05-30] MEDS ORDERED: PATIENT'S OWN MEDICATION (NON-FORMULARY) (Simvastatin [Simvastatin] 20 MG) PO SCH (22:00)
[2019-05-31] MEDS ORDERED: DEXTROSE 5%-WATER - 50 ML IVPB ONE ×3 (00:05→17:35)
[2019-05-31] MEDS ORDERED: PIPERACILLIN/TAZOBACTAM 3.375 GM VIAL IVPB ONE ×3 (00:05→17:35)
[2019-05-31] MEDS: PIPERACILLIN/TAZOB 3.375 GM 3.375 GM in DEXTROSE 5%-WATER - 50 ML IVPB SCH ×3 (01:30→18:00)
[2019-05-31] MEDS: ACETAMINOPHEN 325 MG TABLET (FP) PO PRN ×2 (02:04→16:44)
--- NOTE | 2019-05-31 09:08 | PN ---
Progress Note, Physician Chief Complaint: 74 year-old female with a PMH significant for HTN, HLD, thrombophlebitis, GERD, anxiety, and a chronically incarcerated recurrent ventral hernia s/p multiple repairs, most recently on 05/21/[address] Rabago. Now admitted due to low grade fever and malaise. History of Present Illness: 24HR events - rising WBC, 17.2 this morning -rising LFTs -pt able to tolerate diet in small portions, in addition to being OOB and ambulating around room. -Phos and K low this morning - will replete - Current Medication List Current Medications: Active Medications Acetaminophen (Tylenol -) 650 mg PO Q6H PRN PRN Reason: FOR HEADACHE OR PAIN SCALE 1-5 Last Admin: 05/31/19 02:04 Dose: 650 mg Amlodipine Besylate (Norvasc -) 2.5 mg PO DAILY [facility] Last Admin: 05/30/19 11:04 Dose: 2.5 mg Atorvastatin Calcium (Lipitor -) 10 mg PO HS [facility] Last Admin: 05/30/19 21:36 Dose: 10 mg Enoxaparin Sodium (Lovenox -) 40 mg SQ DAILY RYAN Last Admin: 05/30/19 13:48 Dose: Not Given Piperacillin Sod/Tazobactam (Sod 3.375 gm/ Dextrose) 50 mls @ 100 mls/hr IVPB Q8H-IV RYAN; Protocol Piperacillin Sod/Tazobactam (Sod 3.375 gm/ Dextrose) 50 mls @ 100 mls/hr IVPB Q8H-IV RYAN; Protocol Last Admin: 05/31/19 01:30 Dose: 100 mls/hr Loratadine (Claritin -) 10 mg PO DAILY PRN PRN Reason: ALLERGIES Last Admin: 05/30/19 21:36 Dose: 10 mg Lorazepam (Ativan -) 0.5 mg PO HS PRN PRN Reason: ANXIETY Last Admin: 05/30/19 21:36 Dose: 0.5 mg Oxybutynin Chloride (Ditropan -) 5 mg PO DAILY [facility] Last Admin: 05/30/19 14:30 Dose: 5 mg Pantoprazole Sodium (Protonix -) 20 mg PO DAILY RYAN Last Admin: 05/30/19 11:02 Dose: 20 mg Ramipril (Altace -) 10 mg PO DAILY RYAN Last Admin: 05/30/19 11:04 Dose: 10 mg - Objective Vital Signs: Vital Signs Temperature 98.7 F 05/31/19 06:00 Pulse Rate 90 05/31/19 06:00 Respiratory Rate 19 05/31/19 08:15 Blood Pressure 136/63 05/31/19 06:00 O2 Sat by Pulse Oximetry (%) 95 05/31/19 08:15 Constitutional: Yes: Well Nourished, No Distress, Calm Eyes: Yes: Conjunctiva Clear, PERRL HENT: Yes: Atraumatic, Normocephalic Neck: Yes: Supple Cardiovascular: Yes: Regular Rate and Rhythm Respiratory: Yes: Regular, CTA Bilaterally Gastrointestinal: Yes: Normal Bowel Sounds, Soft, Other (mild tenderness to palpation, umbilical surgical wound with black eschar. no redness or warmth present) Musculoskeletal: Yes: WNL Extremities: Yes: WNL Edema: No Peripheral Pulses WNL: Yes Peripheral Pulses: Left Radial: 2+, Right Radial: 2+, Left Doralis Pedis: 2+, Right Dorsalis Pedis: 2+ Integumentary: Yes: WNL Wound/Incision: Yes: Open to air Neurological: Yes: Alert, Oriented, Cran Nerves II-XII Intact ...Motor Strength: WNL Psychiatric: Yes: Alert, Oriented Labs: CBC, BMP 05/30/19 07:20 05/30/19 07:20 INR, PTT INR 1.22 (0.82-1.09) 05/30/19 07:20 - ....Imaging Cat Scan: Report Reviewed (Ct abd and pelvis 05/31/2019 Impression: Subcutaneous fluid accumulation and subcutaneous soft tissue stranding is noted along the anterior half of the abdomen and pelvis. Correlate clinically. Status post cholecystectomy. Nonspecific common bile duct dilatation is noted. Clinical/laboratory correlation is suggested. Reported By: Rishi Rivas MD 05/31/19 [id number]) Problem List - Problems (1) Leukocytosis Code(s): D72.829 - ELEVATED WHITE BLOOD CELL COUNT, UNSPECIFIED (2) H/O ventral hernia repair Code(s): Z98.890 - OTHER SPECIFIED POSTPROCEDURAL STATES; Z87.19 - PERSONAL HISTORY OF OTHER DISEASES OF THE DIGESTIVE SYSTEM Impression/Plan Impression/Plan: Sepsis s/p complex hernia repair and abdominoplasty --ID following, recs appreciated --s/p DENISA drains removal in ED --Abx regimen as per ID --blood cx NGTD --APAP PRN pain -- WBC uptrending, C-diff sent. Trend temp and WBC curve -- CT abd/pelvis done: no intra-abdominal abscess identified, no free air or bowel obstruction. Hypertension --norvasc 2.5mg daily -- altace 10mg daily Hyperlipidemia --lipitor 10mg qhs GERD --protonix 20mg daily Anxiety --continue lorazepam 0.5mg qhs Allergic rhinitis -- continue claritin Urinary incontinence --continue ditropan FEN Fluids: encourage oral intake electrolytes: replete as needed Nutrition: cardiac diet DVT prophylaxis: SC lovenox, oob, ambulation Physical therapy Dispo: continues to require inpatient care. Full code. Case reviewed with Surgeon: Dr. Raines [phone] Visit type - Emergency Visit Emergency Visit: Yes ED Registration Date: 05/29/19 Care time: The patient presented to the Emergency Department on the above date and was hospitalized for further evaluation of their emergent condition. - New Patient This patient is new to me today: Yes Date on this admission: 05/31/19 - Critical Care Critical Care patient: No - Discharge Referral Referred to [facility] Med P.C.: No
--- NOTE | 2019-05-31 10:11 | PN ---
Progress Note (short form) - Note Progress Note: surgery pt seen and examined. feels better today. tolerating some food. less tired. no fever wbc pending abd- soft, skin clean, no fluctuance or cellulitis, minimal tenderness, nd ... no change Plan- unclear source of low grade fever and leukocytosis. ?viral. low suspicion for intra-abdominal pathology or mesh involvement. agree with unasyn empirically. expect wbc to improve . cultures pending but negative to date. pt is non toxic.
[2019-05-31 10:16] LABS: HEMATOCRIT 27.6 % (32.4-45.2); HEMOGLOBIN 9.3 GM/dl (10.7-15.3); MCH 30.3 pg (25.7-33.7); MCHC 33.6 g/dl (32.0-36.0); MEAN CELL VOLUME 90.3 fl (80-96); MEAN PLT VOLUME 7.1 fl (7.5-11.1); PLATELET COUNT 411 K/MM3 (134-434); RBC 3.06 M/mm3 (3.60-5.2); RDW 12.9 % (11.6-15.6); WHITE BLOOD COUNT 17.7 K/mm3 (4.0-10.8)
[2019-05-31] MEDS: RAMIPRIL 5 MG CAPSULE (FP) PO SCH (10:36)
[2019-05-31] MEDS: OXYBUTYNIN CHLORIDE 5 MG TABLET PO SCH (10:38)
[2019-05-31] MEDS: PANTOPRAZOLE 20 MG TABLET (FP) PO SCH (10:38)
[2019-05-31] MEDS: amLODIPine BESYLATE 2.5 MG TABLET (FP) PO SCH ×2 (10:38→11:04)
[2019-05-31] MEDS: ENOXAPARIN NA (PORCINE) 40 MG/0.4 ML DISP.SYRIN SQ SCH ×2 (10:39→11:04)
[2019-05-31 10:41] LABS: ALBUMIN 2.8 g/dl (3.4-5.0); BILIRUBIN,TOTAL 0.6 mg/dl (0.2-1); CALCIUM 8.2 mg/dl (8.5-10); CREATININE 0.6 mg/dl (0.55-1.3); TOT PROT 5.9 g/dl (6.4-8.2)
[2019-05-31] MEDS ORDERED: POTASSIUM PHOSPHATE 22 MM in DEXTROSE 5%-WATER - 250 ML IVPB ONE (10:44)
[2019-05-31] MEDS ORDERED: POTASSIUM CHLORIDE TABS 10 MEQ TABLET.ER (FP) PO ONE ×2 (10:45→15:00)
--- NOTE | 2019-05-31 11:14 | CON.ID ---
Consult - History of Present Illness History of Present Illness: 74 y.o. female with PMH of HTN, thrombophlebitis, anxiety, GERD, HLD, s/p MARY CARMEN/ BSO, s/p appendectomy/cholecystectomy, recurrent ventral hernia s/p repair x 3. Her last repair and abdominoplasty was on 05/21/19 after which she was sent home with DENISA drains in place on Augmentin. She stopped taking Augmentin after 2-3 d and 3 days ago began feeling weak, with episodes of loose BMs, and loss of appetite. In the ER was noted to have temp of 100.6F and mild leukocytosis (wbc 12.4K) and started on antibiotics for possible infectious etiology. DENISA drains were removed and reported as not having purulent drainage. Pt denies any recent n/v episodes, sore throat, cough, SOB, chest pain, urinary f/u/d. This morning had 2 watery, nonbloody BMs. Denies abdominal pain other than mild soreness at surgical site. Noted to have further increase in WBC and increased LFTs but is afebrile this a.m. Ate very little due to lack of appetite. Has no other specific complaints at this time. - History Source History Provided By: Patient Limitations to Obtaining History: No Limitations - Past Medical History DAIRY INSPECTOR: No: Alzheimer's, CVA, Dementia, Migraine, Multiple Sclerosis, Peripheral Neuropathy, Parkinson's, Seizure, Syncope, TIA, Vertigo, Other Cardio/Vascular: Yes: HTN, Hyperlipdemia Pulmonary: No: Asthma, Bronchitis, Cancer, COPD, O2 Dependent, Pneumonia, Previously Intubated, Pulmonary Embolus, Pulmonary Fibrosis, Sleep Apnea, Other Gastrointestinal: Yes: Other (ventral hernias) Hepatobiliary: No: Cirrhosis, Cholelithiasis, Cholecystitis, Choledocholithiasis , Hepatitis A, Hepatitis B, Hepatitis C, Other Heme/Onc: No: Anemia, B12 Deficiency, Bleeding Disorder, Cancer, Current Chemotherapy, Current Radiation Therapy, Hemochromatosis, Hypercoaguable State, Myeloproliferative Synd, Sickle Cell Disease, Sickle Cell Trait, Thrombocytopenia, Other Infectious Disease: No: AIDS, C-Diff, Herpes Zoster, HIV, MRSA, STD's, Tuberculosis, VREF, Other Psych: Yes: Anxiety Musculoskeletal: No: Bursitis, Chronic low back pain, Hemiparesis, Hemiplegia, Osteoarthritis, Paraplegia, Other Rheumatology: No: Fibromyalgia, Gout, Lupus, Rheumatoid Arthritis, Sarcoidosis, Vasculitis, Other ENT: No: Allergic Rhinitis, Sinusitis, Other Endocrine: No: [place]'s Disease, Jony's Disease, Diabetes Insipidus, Diabetes Mellitus, Hyperparathyroidism, Hyperthyroidism, Hypothyroidism, Osteopenia, SIADH, Other Dermatology: No: Basal Cell, Cellulitis, Eczema, Melanoma, Psoriasis, Squamous Cell, Other - Past Surgical History Past Surgical History: Yes: Appendectomy, Cholecystectomy, Hernia Repair - Alcohol/Substance Use Hx Alcohol Use: No - Smoking History Smoking history: Never smoked Have you smoked in the past 12 months: No If you are a former smoker, when did you quit?: 30 y ago Home Medications - Allergies Allergies/Adverse Reactions: Allergies Allergy/AdvReac Type Severity Reaction Status Date / Time ciprofloxacin [From Cipro] AdvReac Vomiting Verified 05/29/19 17:25 morphine AdvReac Vomiting Verified 05/29/19 17:25 seasonal Allergy Uncoded 05/29/19 17:25 - Home Medications Home Medications: Ambulatory Orders Amlodipine Besylate 2.5 mg PO DAILY 05/09/19 Cetirizine HCl [Zyrtec -] 10 mg PO DAILY PRN 05/09/19 Lorazepam 0.5 mg PO DAILY PRN 05/09/19 Omeprazole 20 mg PO AM 05/09/19 Oxybutynin Chloride 5 mg PO DAILY 05/09/19 Ramipril 10 mg PO DAILY 05/09/19 Simvastatin 20 mg PO HS 05/09/19 Amox-Tr/K Cl [Augmentin 875-125mg Tablet -] 1 tab PO BIDWM #14 tablet 05/22/19 Ibuprofen [Motrin -] 800 mg PO Q6H PRN tablet 05/22/19 Review of Systems - Review of Systems Constitutional: reports: Loss of Appetite, Weakness. denies: No Symptoms, Chills, Diaphoresis, Fever, Lethargy, Malaise, Night Sweats, Unintentional Wgt. Loss, Other Eyes: denies: No Symptoms, Blind Spots, Blurred Vision, Double Vision, Eye Pain , Floaters, Photophobia, Recent Change in Vision, Other HENT: denies: No Symptoms, Difficult Swallowing, Ear Discharge, Ear Pain, Epistaxis, Gingival Bleeding, Hearing Loss, Mouth Swelling, Nasal Congestion, Ocular Prosthesis, Throat Pain, Toothache, Ringing in Ears, Other Neck: denies: No Symptoms, Decreased ROM, Lumps, Pain on Movement, Stiffness, Swollen Glands, Tenderness, Other Cardiovascular: denies: No Symptoms, Chest Pain, Edema, Palpitations, Shortness of Breath, Other Respiratory: denies: No Symptoms, Cough, Exercise Intolerance, Hemoptysis, Orthopnea, PND, Snoring, SOB, SOB on Exertion, Wheezing, Other Gastrointestinal: reports: Diarrhea. denies: No Symptoms, Abdominal Pain, Bloating, Constipation, Dysphagia, Indigestion, Melena, Nausea, Rectal Bleeding , Vomiting, Vomiting Blood, Other Genitourinary: denies: No Symptoms, Burning, Discharge, Dysuria, Flank Pain, Frequency, Hematuria, Incontinence, Lesions, Menses, Pain, Testicular Mass, Testicular Pain, Testicular Swelling, Urgency, Vaginal Bleeding, Other Breasts: denies: No Symptoms Reported, See HPI, Breast Implants, Discharge from Nipple, Lumps, Pain, Skin Changes, Other Musculoskeletal: denies: No Symptoms, Back Pain, Crepitus, Decreased ROM, Extremity Pain, Joint Pain, Joint Swelling, Muscle Pain, Muscle Cramps, Muscle Weakness, Other Integumentary: denies: No Symptoms, Blister, Bruising, Change in Color, Eczema, Erythema, Incision, Lesions, Lump, Pallor, Pruritis, Rash, Wound, Other Hematology/Lymphatic: denies: No Symptoms, Easily Bruised, Excessive Bleeding, Swollen Glands, Other Psychiatric: denies: No Symptoms, Altered Sleep Pattern, Anxiety, Depression, Hallucinations, Panic, Paranoia, Suicidal, Other Physical Exam Vital Signs: Vital Signs Temperature 97.6 F 05/31/19 10:00 Pulse Rate 99 H 05/31/19 10:00 Respiratory Rate 18 05/31/19 10:00 Blood Pressure 121/57 L 05/31/19 10:00 O2 Sat by Pulse Oximetry (%) 96 05/31/19 10:00 Constitutional: Yes: No Distress, Calm HENT: Yes: Atraumatic Neck: Yes: Supple Cardiovascular: Yes: Tachycardia Respiratory: Yes: CTA Bilaterally Gastrointestinal: Yes: Normal Bowel Sounds, Soft Renal/: Yes: WNL Breast(s): Yes: WNL Musculoskeletal: Yes: WNL Extremities: Yes: WNL Edema: No Peripheral Pulses WNL: Yes Wound/Incision: Yes: Clean/Dry, Other (minimal erythema , no opening draining wounds, no tenderness/fluctuance/induration) Neurological: Yes: Alert, Oriented Psychiatric: Yes: Alert Labs: CBC, BMP 05/31/19 10:09 05/31/19 10:09 Microbiology 05/29/19 18:00 Urine - Urine Clean Catch Urine Culture - Final NO GROWTH OBTAINED 05/29/19 18:15 Blood - Peripheral Venous Blood Culture - Preliminary NO GROWTH OBTAINED AFTER 24 HOURS, INCUBATION TO CONTINUE FOR 4 DAYS. 05/29/19 18:30 Blood - Peripheral Venous Blood Culture - Preliminary NO GROWTH OBTAINED AFTER 24 HOURS, INCUBATION TO CONTINUE FOR 4 DAYS. Laboratory Tests 05/29/19 05/29/19 05/29/19 18:00 18:15 18:15 WBC RBC Hgb Hct MCV MCH MCHC RDW Plt Count MPV Absolute Neuts (auto) Neutrophils % Lymphocytes % Monocytes % Eosinophils % Basophils % PT with INR INR PTT (Actin FS) Sodium Potassium Chloride Carbon Dioxide Anion Gap BUN Creatinine Est GFR (CKD-EPI)AfAm Est GFR (CKD-EPI)NonAf Random Glucose Lactic Acid Calcium Phosphorus Magnesium Total Bilirubin AST ALT Alkaline Phosphatase Creatine Kinase Troponin I < 0.03 Total Protein Albumin Lipase 105 Urine Color Yellow Urine Appearance Clear Urine pH 5.5 Urine Protein 1+ H Urine Glucose (UA) Negative Urine Ketones 3+ H Urine Blood Negative Urine Nitrite Negative Urine Bilirubin Negative Urine Urobilinogen 0.2 Ur Leukocyte Esterase Negative Urine RBC 0-2 Urine WBC 0-2 Urine Bacteria Few Blood Type Antibody Screen 05/29/19 05/29/19 05/29/19 18:15 18:15 22:30 WBC 12.4 H RBC 3.54 L Hgb 10.7 Hct 32.1 L MCV 90.7 MCH 30.3 MCHC 33.4 RDW 13.1 Plt Count 421 MPV 7.9 Absolute Neuts (auto) 11.0 Neutrophils % 89.2 H Lymphocytes % 5.3 L Monocytes % 3.5 L Eosinophils % 0.6 Basophils % 1.4 PT with INR INR PTT (Actin FS) Sodium 135 L Potassium 4.0 Chloride 103 Carbon Dioxide 24 Anion Gap 8 BUN 11.0 Creatinine 0.7 Est GFR (CKD-EPI)AfAm 99.62 Est GFR (CKD-EPI)NonAf 85.95 Random Glucose 109 H Lactic Acid 0.8 Calcium 8.4 L Phosphorus Magnesium Total Bilirubin 0.7 AST 38 H ALT 39 Alkaline Phosphatase 118 H Creatine Kinase 69 Troponin I Total Protein 6.8 Albumin 3.5 Lipase Urine Color Urine Appearance Urine pH Urine Protein Urine Glucose (UA) Urine Ketones Urine Blood Urine Nitrite Urine Bilirubin Urine Urobilinogen Ur Leukocyte Esterase Urine RBC Urine WBC Urine Bacteria Blood Type Antibody Screen 05/30/19 05/30/19 05/30/19 07:00 07:00 07:20 WBC 14.5 H RBC 3.15 L Hgb 9.8 L Hct 28.4 L MCV 90.3 MCH 31.0 MCHC 34.3 RDW 12.9 Plt Count 343 MPV 7.5 Absolute Neuts (auto) 12.9 Neutrophils % 89.4 H Lymphocytes % 5.2 L Monocytes % 4.6 Eosinophils % 0.5 Basophils % 0.3 PT with INR INR PTT (Actin FS) Sodium Potassium Chloride Carbon Dioxide Anion Gap BUN Creatinine Est GFR (CKD-EPI)AfAm Est GFR (CKD-EPI)NonAf Random Glucose Lactic Acid Calcium Phosphorus Magnesium Total Bilirubin AST ALT Alkaline Phosphatase Creatine Kinase Troponin I Total Protein Albumin Lipase Urine Color Urine Appearance Urine pH Urine Protein Urine Glucose (UA) Urine Ketones Urine Blood Urine Nitrite Urine Bilirubin Urine Urobilinogen Ur Leukocyte Esterase Urine RBC Urine WBC Urine Bacteria Blood Type A POSITIVE A POSITIVE Antibody Screen Negative 05/30/19 05/30/19 05/31/19 07:20 07:20 10:09 WBC 17.7 H RBC 3.06 L Hgb 9.3 L Hct 27.6 L MCV 90.3 MCH 30.3 MCHC 33.6 RDW 12.9 Plt Count 411 MPV 7.1 L Absolute Neuts (auto) Neutrophils % Lymphocytes % Monocytes % Eosinophils % Basophils % PT with INR 13.6 H INR 1.22 PTT (Actin FS) 25.5 Sodium 134 L Potassium 3.7 Chloride 105 Carbon Dioxide 25 Anion Gap 4 L BUN 7.0 Creatinine 0.7 Est GFR (CKD-EPI)AfAm 99.62 Est GFR (CKD-EPI)NonAf 85.95 Random Glucose 107 H Lactic Acid Calcium 7.7 L Phosphorus 2.9 Magnesium 1.8 Total Bilirubin 1.0 AST 51 H ALT 42 Alkaline Phosphatase 113 Creatine Kinase Troponin I Total Protein 5.5 L Albumin 2.8 L Lipase Urine Color Urine Appearance Urine pH Urine Protein Urine Glucose (UA) Urine Ketones Urine Blood Urine Nitrite Urine Bilirubin Urine Urobilinogen Ur Leukocyte Esterase Urine RBC Urine WBC Urine Bacteria Blood Type Antibody Screen 05/31/19 10:09 WBC RBC Hgb Hct MCV MCH MCHC RDW Plt Count MPV Absolute Neuts (auto) Neutrophils % Lymphocytes % Monocytes % Eosinophils % Basophils % PT with INR INR PTT (Actin FS) Sodium 137 Potassium 3.0 L Chloride 107 Carbon Dioxide 23 Anion Gap 7 L BUN 10.0 Creatinine 0.6 Est GFR (CKD-EPI)AfAm 104.80 Est GFR (CKD-EPI)NonAf 90.42 Random Glucose 140 H Lactic Acid Calcium 8.2 L Phosphorus 2.0 L Magnesium 2.0 Total Bilirubin 0.6 AST 83 H ALT 78 H Alkaline Phosphatase 165 H D Creatine Kinase Troponin I Total Protein 5.9 L Albumin 2.8 L Lipase Urine Color Urine Appearance Urine pH Urine Protein Urine Glucose (UA) Urine Ketones Urine Blood Urine Nitrite Urine Bilirubin Urine Urobilinogen Ur Leukocyte Esterase Urine RBC Urine WBC Urine Bacteria Blood Type Antibody Screen Assessment/Plan 74 y.o. female with PMH of HTN, thrombophlebitis, anxiety, GERD, HLD, s/p MARY CARMEN/ BSO, s/p appendectomy/cholecystectomy, recurrent ventral hernia s/p repair x 3, last of which was on 05/21/19 with abdominoplasty presenting with c/o weakness, episodes of diarrhea with leukocytosis and low grade fever. Recurrent ventral hernia s/p repair/abdominoplasty POD#10 Leukocytosis Fever Elevated LFTs Diarrhea r/o C.difficile -- wbc trending upwards -- episodes of loose BMs, send stool Cdiff testing -- continue Zosyn empirically, will add Vancomycin PO empirically as well for now -- CT abdomen/pelvis ordered -- Blood cultures neg 24hr, Urine Culture neg -- monitor wbc/LFT trend -- monitor vitals closely Pt currently appears stable/afebrile Pt evaluated at bedside with Surgery, case discussed Will follow Thank you
[2019-05-31] MEDS ORDERED: ARTIFICIAL TEARS (POLYVINYL ALCOHOL) OPTH DROPS OU PRN (11:18)
[2019-05-31] MEDS: VANCOMYCIN 250 MG/5 ML ORAL SOLUTION PO SCH ×3 (13:00→23:22)
[2019-05-31] MEDS ORDERED: REFRIGERATED ANITBIOTICS ONE ×2 (17:37→23:21)
[2019-05-31] MEDS: IBUPROFEN 400 MG TABLET (FP) PO PRN (20:00)
[2019-05-31] MEDS: LORATADINE 10 MG TABLET PO PRN (21:39)
[2019-05-31] MEDS: LORazepam 0.5 MG TABLET PO PRN (21:39)
[2019-05-31] MEDS: ATORVASTATIN CA 10 MG TABLET (FP) PO SCH (21:39)
[2019-06-01] MEDS ORDERED: PIPERACILLIN/TAZOBACTAM 3.375 GM VIAL IVPB ONE ×3 (00:25→16:15)
[2019-06-01] MEDS ORDERED: DEXTROSE 5%-WATER - 50 ML IVPB ONE ×3 (00:25→16:16)
[2019-06-01] MEDS: PIPERACILLIN/TAZOB 3.375 GM 3.375 GM in DEXTROSE 5%-WATER - 50 ML IVPB SCH ×3 (02:59→17:24)
[2019-06-01] MEDS: IBUPROFEN 400 MG TABLET (FP) PO PRN ×2 (05:59→20:00)
[2019-06-01] MEDS ORDERED: REFRIGERATED ANITBIOTICS ONE ×3 (06:02→17:19)
[2019-06-01] MEDS: VANCOMYCIN 250 MG/5 ML ORAL SOLUTION PO SCH ×3 (06:04→17:24)
[2019-06-01 08:34] LABS: BASO % 0.7 % (0-2.0); EOS % 4.4 % (0-4.5); HEMATOCRIT 25.2 % (32.4-45.2); HEMOGLOBIN 8.4 GM/dl (10.7-15.3); MCH 30.9 pg (25.7-33.7); MCHC 33.5 g/dl (32.0-36.0); MEAN CELL VOLUME 92.3 fl (80-96); NEUT % 83.9 % (42.8-82.8); PLATELET COUNT 341 K/MM3 (134-434); RBC 2.73 M/mm3 (3.60-5.2); RDW 12.8 % (11.6-15.6); WHITE BLOOD COUNT 11.1 K/mm3 (4.0-10.8)
[2019-06-01 08:45] LABS: CALCIUM 8.5 mg/dl (8.5-10); CREATININE 0.8 mg/dl (0.55-1.3); PHOSPHOROUS 3.7 mg/dl (2.5-4.9); POTASSIUM 4.6 mmol/L (3.5-5.1)
--- NOTE | 2019-06-01 08:58 | PN ---
Physical Exam: SUBJECTIVE: Patient seen and examined, reports feeling better, abdominal pain improved, denies N/V/D or any urinary symptoms. OBJECTIVE: Vital Signs Period Temp Pulse Resp BP Sys/[place] Pulse Ox Last 24 Hr 97.6 F-98.6 F 78-106 17-18 107-131/54-72 93-96 GENERAL: The patient is awake, alert, and fully oriented, in no acute distress. HEAD: Normal with no signs of trauma. EYES: PERRL, extraocular movements intact, sclera anicteric, conjunctiva clear. No ptosis. ENT: Ears normal, nares patent, oropharynx clear without exudates, moist mucous membranes. NECK: Trachea midline, full range of motion, supple. LUNGS: Breath sounds equal, clear to auscultation bilaterally, no wheezes, no crackles, no accessory muscle use. HEART: Regular rate and rhythm, S1, S2 without murmur, rub or gallop. ABDOMEN: Soft, abdominal dsg intact, BS present nondistended, normoactive bowel sounds, no guarding, no rebound, no hepatosplenomegaly, no masses. EXTREMITIES: 2+ pulses, warm, well-perfused, no edema. NEUROLOGICAL: Cranial nerves II through XII grossly intact. Normal speech, gait not observed. PSYCH: Normal mood, normal affect. SKIN: Warm, dry, normal turgor, no rashes or lesions noted Laboratory Results - last 24 hr 05/31/19 05/31/19 06/01/19 10:09 10:09 08:15 WBC 17.7 H 11.1 H RBC 3.06 L 2.73 L Hgb 9.3 L 8.4 L Hct 27.6 L 25.2 L MCV 90.3 92.3 MCH 30.3 30.9 MCHC 33.6 33.5 RDW 12.9 12.8 Plt Count 411 341 MPV 7.1 L 8.0 Absolute Neuts (auto) 9.3 Neutrophils % 83.9 H Lymphocytes % 8.0 Monocytes % 3.0 L Eosinophils % 4.4 Basophils % 0.7 Sodium 137 Potassium 3.0 L Chloride 107 Carbon Dioxide 23 Anion Gap 7 L BUN 10.0 Creatinine 0.6 Est GFR (CKD-EPI)AfAm 104.80 Est GFR (CKD-EPI)NonAf 90.42 Random Glucose 140 H Calcium 8.2 L Phosphorus 2.0 L Magnesium 2.0 Total Bilirubin 0.6 AST 83 H ALT 78 H Alkaline Phosphatase 165 H D Total Protein 5.9 L Albumin 2.8 L 06/01/19 08:15 WBC RBC Hgb Hct MCV MCH MCHC RDW Plt Count MPV Absolute Neuts (auto) Neutrophils % Lymphocytes % Monocytes % Eosinophils % Basophils % Sodium 141 Potassium 4.6 Chloride 109 H Carbon Dioxide 24 Anion Gap 8 BUN 11.0 Creatinine 0.8 Est GFR (CKD-EPI)AfAm 84.77 Est GFR (CKD-EPI)NonAf 73.14 Random Glucose 95 Calcium 8.5 Phosphorus 3.7 Magnesium 2.0 Total Bilirubin AST ALT Alkaline Phosphatase Total Protein Albumin Active Medications Generic Name Dose Route Start Last Admin Trade Name Freq PRN Reason Stop Dose Admin Acetaminophen 650 mg 05/30/19 08:36 05/31/19 16:44 Tylenol - PO 650 mg Q6H PRN Administration FOR HEADACHE OR PAIN SCALE 1-5 Amlodipine Besylate 2.5 mg 05/30/19 10:45 05/31/19 11:04 Norvasc - PO Not Given DAILY RYAN Artificial Tears 1 drop 05/31/19 11:18 05/31/19 15:13 Artificial Tears OU 1 drop BID PRN Administration DRY EYES Atorvastatin Calcium 10 mg 05/30/19 22:00 05/31/19 21:39 Lipitor - PO 10 mg HS RYAN Administration Enoxaparin Sodium 40 mg 05/30/19 11:00 05/31/19 11:04 Lovenox - SQ Not Given DAILY RYAN Piperacillin Sod/Tazobactam 50 mls @ 100 mls/hr 05/31/19 02:00 06/01/19 02:59 Sod 3.375 gm/ Dextrose IVPB 100 mls/hr Q8H-IV RYAN Administration Protocol Ibuprofen 800 mg 05/31/19 17:53 06/01/19 05:59 Motrin - PO 800 mg Q8H PRN Administration PAIN LEVEL 5-10 Loratadine 10 mg 05/30/19 10:35 05/31/19 21:39 Claritin - PO 10 mg DAILY PRN Administration ALLERGIES Lorazepam 0.5 mg 05/29/19 23:09 05/31/19 21:39 Ativan - PO 0.5 mg HS PRN Administration ANXIETY Oxybutynin Chloride 5 mg 05/30/19 14:30 05/31/19 10:38 Ditropan - PO 5 mg DAILY RYAN Administration Pantoprazole Sodium 20 mg 05/30/19 10:30 05/31/19 10:38 Protonix - PO 20 mg DAILY RYAN Administration Ramipril 10 mg 05/30/19 10:45 05/31/19 10:36 Altace - PO 10 mg DAILY RYAN Administration Vancomycin HCl 125 mg 05/31/19 12:00 06/01/19 06:04 Vancomycin Oral Solution PO 125 mg Q6HPO RYAN Administration CT abd and pelvis 05/31/2019 Impression: Subcutaneous fluid accumulation and subcutaneous soft tissue stranding is noted along the anterior half of the abdomen and pelvis. Correlate clinically. Status post cholecystectomy. Nonspecific common bile duct dilatation is noted. CxR: No acute lung pathology ASSESSMENT/PLAN: 74 year-old female with a PMH significant for HTN, HLD, GERD, HLD, s/p MARY CARMEN/BSO, s/p appendectomy/cholecystectomy, thrombophlebitis, GERD, anxiety, and a chronically incarcerated recurrent ventral hernia s/p multiple repairs, most recently on 05/21/19 with abdominoplasty. Now admitted due to low grade fever and malaise. *Sepsis s/p complex hernia repair and abdominoplasty -POD #11 - max Temp T100.6, WBC 12.4k, p121 on admission; lactic acid wnl -WBC trending down, afebrile - ID following -continue Zosyn - ID and sx following - Blood /urine cultures negative - CT abdomen/Pelvis : No intra-abdominal abscess identified, no free air or bowel obstruction. - Diet chris well * Diarrhea- stable today - stool for C-Diff pending - will cont on oral Vanco * Abnormal LFT's- likely reactive - will hold off on Tylenol -will f/u on labs * Anemia - Hgb 10.7 on admission, trending down >8.4 - no overt signs of active bleeding noted - will check Fe studies, and stool occult *Hypertension -will resume on home dose amlodipine, ramipril *Hyperlipidemia - will cont on simvastatin *Thrombophlebitis- stable -not on meds *GERD - on protonix *Anxiety -continue lorazepam *Allergic rhinitis - continue claritin *Urinary incontinence -continue ditropan FEN Fluids: PO intake adequate Electrolytes: replete as indicated Nutrition: Low Na, low fat DVT prophylaxis: subq Lovenox, oob, ambulation Physical therapy Dispo: continues to require inpatient care. Full code. Visit type - Emergency Visit Emergency Visit: Yes ED Registration Date: 05/29/19 Care time: The patient presented to the Emergency Department on the above date and was hospitalized for further evaluation of their emergent condition. - New Patient This patient is new to me today: Yes Date on this admission: 06/01/19 - Critical Care Critical Care patient: No
--- NOTE | 2019-06-01 09:34 | PN ---
Progress Note, Physician History of Present Illness: Pt is alert, afebrile. States she feels much better. No significant abdominal pain. Notes decrease in diarrhea. Had one soft BM today. Has been ambulating. LFTs mildly elevated yesterday. Pt states she has been taking tylenol and advil Qhrs. - Current Medication List Current Medications: Active Medications Amlodipine Besylate (Norvasc -) 2.5 mg PO DAILY [facility] Last Admin: 05/31/19 11:04 Dose: Not Given Artificial Tears (Artificial Tears) 1 drop OU BID PRN PRN Reason: DRY EYES Last Admin: 05/31/19 15:13 Dose: 1 drop Atorvastatin Calcium (Lipitor -) 10 mg PO HS RYAN Last Admin: 05/31/19 21:39 Dose: 10 mg Enoxaparin Sodium (Lovenox -) 40 mg SQ DAILY [facility] Last Admin: 05/31/19 11:04 Dose: Not Given Piperacillin Sod/Tazobactam (Sod 3.375 gm/ Dextrose) 50 mls @ 100 mls/hr IVPB Q8H-IV RYAN; Protocol Last Admin: 06/01/19 02:59 Dose: 100 mls/hr Ibuprofen (Motrin -) 800 mg PO Q8H PRN PRN Reason: PAIN LEVEL 5-10 Last Admin: 06/01/19 05:59 Dose: 800 mg Loratadine (Claritin -) 10 mg PO DAILY PRN PRN Reason: ALLERGIES Last Admin: 05/31/19 21:39 Dose: 10 mg Lorazepam (Ativan -) 0.5 mg PO HS PRN PRN Reason: ANXIETY Last Admin: 05/31/19 21:39 Dose: 0.5 mg Oxybutynin Chloride (Ditropan -) 5 mg PO DAILY [facility] Last Admin: 05/31/19 10:38 Dose: 5 mg Pantoprazole Sodium (Protonix -) 20 mg PO DAILY RYAN Last Admin: 05/31/19 10:38 Dose: 20 mg Ramipril (Altace -) 10 mg PO DAILY [facility] Last Admin: 05/31/19 10:36 Dose: 10 mg Vancomycin HCl (Vancomycin Oral Solution) 125 mg PO Q6HPO [facility] Last Admin: 06/01/19 06:04 Dose: 125 mg - Objective Vital Signs: Vital Signs Temperature 98.5 F 06/01/19 05:47 Pulse Rate 87 06/01/19 05:47 Respiratory Rate 17 06/01/19 05:47 Blood Pressure 122/64 06/01/19 05:47 O2 Sat by Pulse Oximetry (%) 96 06/01/19 05:48 Constitutional: Yes: No Distress, Calm Cardiovascular: Yes: Regular Rate and Rhythm Respiratory: Yes: CTA Bilaterally Gastrointestinal: Yes: Normal Bowel Sounds, Soft Genitourinary: Yes: WNL Musculoskeletal: Yes: WNL Extremities: Yes: WNL Edema: No Peripheral Pulses WNL: Yes Integumentary: Yes: WNL Wound/Incision: Yes: Dressing Dry and Intact (minimal surgical site erythema/no induration/no drainage) Neurological: Yes: Alert, Oriented Labs: CBC, BMP 06/01/19 08:15 06/01/19 08:15 INR, PTT INR 1.22 (0.82-1.09) 05/30/19 07:20 Microbiology 05/29/19 18:15 Blood - Peripheral Venous Blood Culture - Preliminary NO GROWTH OBTAINED AFTER 48 HOURS, INCUBATION TO CONTINUE FOR 3 DAYS. 05/29/19 18:30 Blood - Peripheral Venous Blood Culture - Preliminary NO GROWTH OBTAINED AFTER 48 HOURS, INCUBATION TO CONTINUE FOR 3 DAYS. 05/29/19 18:00 Urine - Urine Clean Catch Urine Culture - Final NO GROWTH OBTAINED - ....Imaging Chest X-ray: Report Reviewed Cat Scan: Report Reviewed Assessment/Plan 74 y.o. female with PMH of HTN, thrombophlebitis, anxiety, GERD, HLD, s/p MARY CARMEN/ BSO, s/p appendectomy/cholecystectomy, recurrent ventral hernia s/p repair x 3, last of which was on 05/21/19 with abdominoplasty presenting with c/o weakness, episodes of diarrhea with leukocytosis and low grade fever. Recurrent ventral hernia s/p repair/abdominoplasty POD#11 Leukocytosis Fever Elevated LFTs Diarrhea r/o C.difficile -- wbc decreased , pt now afebrile -- diarrhea improving, f/u C diff test results -- continue Zosyn empirically, continue Vancomycin po for now -- CT abdomen/pelvis without abcess -- Blood cultures neg so far, Urine Cx neg -- repeat LFT today to monitor trend, suggest d/c tylenol, avoid hepatoxic meds -- continue monitor -- pt currently stable Case d/w Surgery
[2019-06-01] MEDS: RAMIPRIL 5 MG CAPSULE (FP) PO SCH (09:44)
[2019-06-01] MEDS: OXYBUTYNIN CHLORIDE 5 MG TABLET PO SCH (09:45)
[2019-06-01] MEDS: PANTOPRAZOLE 20 MG TABLET (FP) PO SCH (09:45)
[2019-06-01] MEDS: amLODIPine BESYLATE 2.5 MG TABLET (FP) PO SCH (09:45)
[2019-06-01] MEDS: ENOXAPARIN NA (PORCINE) 40 MG/0.4 ML DISP.SYRIN SQ SCH (09:45)
[2019-06-01 09:48] LABS: ALBUMIN 2.5 g/dl (3.4-5.0); BILIRUBIN,TOTAL 0.6 mg/dl (0.2-1); TOT PROT 5.4 g/dl (6.4-8.2)
[2019-06-01 09:50] LABS: BILIRUBIN,DIRECT 0.1 mg/dL (0.0-0.2)
[2019-06-01 12:58] LABS: IRON SERUM 17 ug/dL (50-175); TOTAL IRON BINDING CAPACITY 184 ug/dL (250-450)
[2019-06-01] MEDS: ATORVASTATIN CA 10 MG TABLET (FP) PO SCH (21:42)
[2019-06-01] MEDS: LORazepam 0.5 MG TABLET PO PRN (21:42)
[2019-06-01] MEDS: LORATADINE 10 MG TABLET PO PRN (21:42)
[2019-06-02] MEDS ORDERED: DEXTROSE 5%-WATER - 50 ML IVPB ONE ×3 (01:20→17:50)
[2019-06-02] MEDS ORDERED: PIPERACILLIN/TAZOBACTAM 3.375 GM VIAL IVPB ONE ×3 (01:20→17:50)
[2019-06-02] MEDS: PIPERACILLIN/TAZOB 3.375 GM 3.375 GM in DEXTROSE 5%-WATER - 50 ML IVPB SCH ×3 (02:00→18:36)
[2019-06-02] MEDS: IBUPROFEN 400 MG TABLET (FP) PO PRN ×3 (04:00→22:13)
[2019-06-02 08:38] LABS: MCH 31.4 pg (25.7-33.7); MONO % 5.2 % (3.8-10.2); WHITE BLOOD COUNT 6.6 K/mm3 (4.0-10.8)
[2019-06-02 08:46] LABS: BASO % 0.8 % (0-2.0); HEMATOCRIT 25.2 % (32.4-45.2); HEMOGLOBIN 8.5 GM/dl (10.7-15.3); LYMPH % 17.9 % (8-40); MCHC 33.8 g/dl (32.0-36.0); MEAN CELL VOLUME 92.8 fl (80-96); MEAN PLT VOLUME 7.9 fl (7.5-11.1); NEUT % 68.1 % (42.8-82.8); PLATELET COUNT 413 K/MM3 (134-434); RBC 2.72 M/mm3 (3.60-5.2)
[2019-06-02 09:35] LABS: ALBUMIN 2.4 g/dl (3.4-5.0); BILIRUBIN,TOTAL 0.5 mg/dl (0.2-1); CALCIUM 8.5 mg/dl (8.5-10); CREATININE 0.6 mg/dl (0.55-1.3); POTASSIUM 4.4 mmol/L (3.5-5.1); TOT PROT 5.3 g/dl (6.4-8.2)
[2019-06-02] MEDS: amLODIPine BESYLATE 2.5 MG TABLET (FP) PO SCH (09:41)
[2019-06-02] MEDS: RAMIPRIL 5 MG CAPSULE (FP) PO SCH (09:41)
[2019-06-02] MEDS: OXYBUTYNIN CHLORIDE 5 MG TABLET PO SCH (09:42)
[2019-06-02] MEDS: ENOXAPARIN NA (PORCINE) 40 MG/0.4 ML DISP.SYRIN SQ SCH (09:42)
[2019-06-02] MEDS: PANTOPRAZOLE 20 MG TABLET (FP) PO SCH (10:06)
--- NOTE | 2019-06-02 11:16 | PN ---
Physical Exam: SUBJECTIVE: Patient seen and examined at bedside. Denies pain. Denies fever, sweats, chills. Generally feeling well. OBJECTIVE: Vital Signs Period Temp Pulse Resp BP Sys/Bahena Pulse Ox Last 24 Hr 97.6 F-98.9 F 83-94 16-18 112-150/63-73 95-98 GENERAL: The patient is awake, alert, and fully oriented, in no acute distress. LUNGS: Breath sounds equal, clear to auscultation bilaterally, no wheezes, no crackles, no accessory muscle use. HEART: Regular rate and rhythm, S1, S2 ABDOMEN: Transverse incision edges well-approximated, no bleeding, no exudate; at distal edge on left, open wound packed with gauze with moderate serosanguinous fluid, no pus, no odor, mildly tender; umbilicus with necrotic tissue EXTREMITIES: 2+ pulses, warm, well-perfused, no edema. NEUROLOGICAL: Cranial nerves II through XII grossly intact. Normal speech Laboratory Results - last 24 hr 06/01/19 06/01/19 06/01/19 09:30 09:30 09:30 WBC RBC Hgb Hct MCV MCH MCHC RDW Plt Count MPV Absolute Neuts (auto) Neutrophils % Lymphocytes % Monocytes % Eosinophils % Basophils % Sodium Potassium Chloride Carbon Dioxide Anion Gap BUN Creatinine Est GFR (CKD-EPI)AfAm Est GFR (CKD-EPI)NonAf Random Glucose Calcium Iron 14 L 17 L TIBC 184 L Iron Saturation 9 L Unsaturated IBC 167 L Ferritin 401.5 H Total Bilirubin AST ALT Alkaline Phosphatase Total Protein Albumin Stool Occult Blood 06/01/19 06/02/19 06/02/19 15:50 07:06 07:06 WBC 6.6 RBC 2.72 L Hgb 8.5 L Hct 25.2 L MCV 92.8 MCH 31.4 MCHC 33.8 RDW 13.0 Plt Count 413 MPV 7.9 Absolute Neuts (auto) 4.5 Neutrophils % 68.1 Lymphocytes % 17.9 Monocytes % 5.2 Eosinophils % 8.0 H Basophils % 0.8 Sodium 144 Potassium 4.4 Chloride 109 H Carbon Dioxide 26 Anion Gap 9 BUN 9.0 Creatinine 0.6 Est GFR (CKD-EPI)AfAm 104.80 Est GFR (CKD-EPI)NonAf 90.42 Random Glucose 95 Calcium 8.5 Iron TIBC Iron Saturation Unsaturated IBC Ferritin Total Bilirubin 0.5 AST 47 H ALT 73 H Alkaline Phosphatase 153 H Total Protein 5.3 L Albumin 2.4 L Stool Occult Blood Negative Active Medications Generic Name Dose Route Start Last Admin Trade Name Freq PRN Reason Stop Dose Admin Amlodipine Besylate 2.5 mg 05/30/19 10:45 06/02/19 09:41 Norvasc - PO 2.5 mg DAILY RYAN Administration Artificial Tears 1 drop 05/31/19 11:18 05/31/19 15:13 Artificial Tears OU 1 drop BID PRN Administration DRY EYES Atorvastatin Calcium 10 mg 05/30/19 22:00 06/01/19 21:42 Lipitor - PO 10 mg HS RYAN Administration Enoxaparin Sodium 40 mg 05/30/19 11:00 06/02/19 09:42 Lovenox - SQ Not Given DAILY RYAN Piperacillin Sod/Tazobactam 50 mls @ 100 mls/hr 05/31/19 02:00 06/02/19 10:07 Sod 3.375 gm/ Dextrose IVPB 100 mls/hr Q8H-IV RYAN Administration Protocol Ibuprofen 800 mg 05/31/19 17:53 06/02/19 04:00 Motrin - PO 800 mg Q8H PRN Administration PAIN LEVEL 5-10 Loratadine 10 mg 05/30/19 10:35 06/01/19 21:42 Claritin - PO 10 mg DAILY PRN Administration ALLERGIES Oxybutynin Chloride 5 mg 05/30/19 14:30 06/02/19 09:42 Ditropan - PO 5 mg DAILY RYAN Administration Pantoprazole Sodium 20 mg 05/30/19 10:30 06/02/19 10:06 Protonix - PO 20 mg DAILY RYAN Administration Ramipril 10 mg 05/30/19 10:45 06/02/19 09:41 Altace - PO 10 mg DAILY RYAN Administration ASSESSMENT/PLAN: 74 year-old female with a PMH significant for HTN, HLD, thrombophlebitis, GERD, anxiety, and a chronically incarcerated recurrent ventral hernia s/p multiple repairs, most recent repair with abdominoplasty on 05/21/19. Admitted for sepsis. Sepsis s/p complex hernia repair and abdominoplasty on 05/21/19 --POD #12 --yesterday began to drain pururulent fluid; I&D performed by surgery, 50 cc purulent fluid drained, wound packed, cultures pending --afebrile, leukocytosis resolved --continue Zosyn (day #4) --ID following --surgery following Hypertension --BP stable --continue ramipril, amlodipine Hyperlipidemia --continue Lipitor Thrombophlebitis --not on meds GERD --continue protonix Anxiety --continue lorazepam FEN Fluids: PO intake adequate Electrolytes: replete as indicated Nutrition: regular diet DVT prophylaxis: subq lovenox, oob, ambulation Physical therapy Dispo: continues to require inpatient care. Full code. Visit type - Emergency Visit Emergency Visit: Yes ED Registration Date: 05/29/19 Care time: The patient presented to the Emergency Department on the above date and was hospitalized for further evaluation of their emergent condition. - New Patient This patient is new to me today: No - Critical Care Critical Care patient: No
--- NOTE | 2019-06-02 13:47 | PN ---
Progress Note, Physician History of Present Illness: stable wound drained stilla accumulating cx are send - Current Medication List Current Medications: Active Medications Amlodipine Besylate (Norvasc -) 2.5 mg PO DAILY [facility] Last Admin: 06/02/19 09:41 Dose: 2.5 mg Artificial Tears (Artificial Tears) 1 drop OU BID PRN PRN Reason: DRY EYES Last Admin: 05/31/19 15:13 Dose: 1 drop Atorvastatin Calcium (Lipitor -) 10 mg PO HS [facility] Last Admin: 06/01/19 21:42 Dose: 10 mg Enoxaparin Sodium (Lovenox -) 40 mg SQ DAILY [facility] Last Admin: 06/02/19 09:42 Dose: Not Given Piperacillin Sod/Tazobactam (Sod 3.375 gm/ Dextrose) 50 mls @ 100 mls/hr IVPB Q8H-IV RYAN; Protocol Last Admin: 06/02/19 10:07 Dose: 100 mls/hr Ibuprofen (Motrin -) 800 mg PO Q8H PRN PRN Reason: PAIN LEVEL 5-10 Last Admin: 06/02/19 12:52 Dose: 800 mg Loratadine (Claritin -) 10 mg PO DAILY PRN PRN Reason: ALLERGIES Last Admin: 06/01/19 21:42 Dose: 10 mg Oxybutynin Chloride (Ditropan -) 5 mg PO DAILY [facility] Last Admin: 06/02/19 09:42 Dose: 5 mg Pantoprazole Sodium (Protonix -) 20 mg PO DAILY [facility] Last Admin: 06/02/19 10:06 Dose: 20 mg Ramipril (Altace -) 10 mg PO DAILY [facility] Last Admin: 06/02/19 09:41 Dose: 10 mg - Objective Vital Signs: Vital Signs Temperature 98.0 F 06/02/19 10:00 Pulse Rate 85 06/02/19 10:00 Respiratory Rate 18 06/02/19 10:00 Blood Pressure 135/72 06/02/19 10:00 O2 Sat by Pulse Oximetry (%) 98 06/02/19 08:09 Constitutional: Yes: No Distress, Calm, Obese Cardiovascular: Yes: Regular Rate and Rhythm Respiratory: Yes: Regular, CTA Bilaterally Gastrointestinal: Yes: Normal Bowel Sounds, Soft Genitourinary: Yes: Other Musculoskeletal: Yes: WNL Extremities: Yes: WNL Wound/Incision: Yes: Dressing Dry and Intact Neurological: Yes: Alert, Oriented Psychiatric: Yes: Alert, Oriented Labs: CBC, BMP 06/02/19 07:06 06/02/19 07:06 INR, PTT INR 1.22 (0.82-1.09) 05/30/19 07:20 Assessment/Plan 74 y.o. female with PMH of HTN, thrombophlebitis, anxiety, GERD, HLD, s/p MARY CARMEN/ BSO, s/p appendectomy/cholecystectomy, recurrent ventral hernia s/p repair x 3, last of which was on 05/21/19 with abdominoplasty presenting with c/o weakness, episodes of diarrhea with leukocytosis and low grade fever. Recurrent ventral hernia s/p repair/abdominoplasty POD#10 Leukocytosis Fever Elevated LFTs wound infection plan will continue abx await for final cx results rest as per the team
[2019-06-02] MEDS ORDERED: IBUPROFEN 400 MG TABLET (FP) PO ONE (21:23)
[2019-06-02] MEDS: ATORVASTATIN CA 10 MG TABLET (FP) PO SCH (22:13)
[2019-06-02] MEDS: LORATADINE 10 MG TABLET PO PRN (22:13)
[2019-06-02] MEDS: LORazepam 0.5 MG TABLET PO PRN (22:13)
[2019-06-03] MEDS: PIPERACILLIN/TAZOB 3.375 GM 3.375 GM in DEXTROSE 5%-WATER - 50 ML IVPB SCH ×3 (02:29→18:15)
[2019-06-03] MEDS ORDERED: PIPERACILLIN/TAZOBACTAM 3.375 GM VIAL IVPB ONE ×3 (03:07→17:43)
[2019-06-03] MEDS ORDERED: DEXTROSE 5%-WATER - 50 ML IVPB ONE ×3 (03:07→17:43)
[2019-06-03 07:29] LABS: BASO % 1.4 % (0-2.0); EOS % 8.5 % (0-4.5); HEMATOCRIT 26.5 % (32.4-45.2); HEMOGLOBIN 8.9 GM/dl (10.7-15.3); LYMPH % 17.8 % (8-40); MCH 30.6 pg (25.7-33.7); MCHC 33.6 g/dl (32.0-36.0); MEAN CELL VOLUME 91.1 fl (80-96); MEAN PLT VOLUME 7.2 fl (7.5-11.1); MONO % 5.4 % (3.8-10.2); NEUT % 66.9 % (42.8-82.8); PLATELET COUNT 457 K/MM3 (134-434); RBC 2.91 M/mm3 (3.60-5.2); RDW 12.7 % (11.6-15.6); WHITE BLOOD COUNT 5.3 K/mm3 (4.0-10.8)
[2019-06-03 07:42] LABS: ALBUMIN 2.6 g/dl (3.4-5.0); BILIRUBIN,TOTAL 0.3 mg/dl (0.2-1); CALCIUM 8.5 mg/dl (8.5-10); CREATININE 0.7 mg/dl (0.55-1.3); POTASSIUM 4.4 mmol/L (3.5-5.1); TOT PROT 5.5 g/dl (6.4-8.2)
--- NOTE | 2019-06-03 08:12 | PN ---
Physical Exam: SUBJECTIVE: Patient seen and examined at bedside. OBJECTIVE: Vital Signs Period Temp Pulse Resp BP Sys/Bahena Pulse Ox Last 24 Hr 97.7 F-98.1 F 78-94 17-18 133-152/67-75 97-100 GENERAL: The patient is awake, alert, and fully oriented, in no acute distress. LUNGS: Breath sounds equal, clear to auscultation bilaterally, no wheezes, no crackles, no accessory muscle use. HEART: Regular rate and rhythm, S1, S2 ABDOMEN: Transverse incision edges well-approximated, no bleeding, no exudate; interval development of mild erythema mid-incision; at distal edge on left, open wound packed with gauze with moderate serosanguinous fluid, no pus, no odor , mildly tender; umbilicus with necrotic tissue debrided with NS EXTREMITIES: 2+ pulses, warm, well-perfused, no edema. NEUROLOGICAL: Cranial nerves II through XII grossly intact. Normal speech Laboratory Results - last 24 hr 05/31/19 06/02/19 06/02/19 10:09 07:06 07:06 WBC 6.6 RBC 2.72 L Hgb 8.5 L Hct 25.2 L MCV 92.8 MCH 31.4 MCHC 33.8 RDW 13.0 Plt Count 413 MPV 7.9 Absolute Neuts (auto) 4.5 Neutrophils % 68.1 Lymphocytes % 17.9 Monocytes % 5.2 Eosinophils % 8.0 H Basophils % 0.8 Sodium 144 Potassium 4.4 Chloride 109 H Carbon Dioxide 26 Anion Gap 9 BUN 9.0 Creatinine 0.6 Est GFR (CKD-EPI)AfAm 104.80 Est GFR (CKD-EPI)NonAf 90.42 Random Glucose 95 Calcium 8.5 Magnesium Total Bilirubin 0.5 AST 47 H ALT 73 H Alkaline Phosphatase 153 H Total Protein 5.3 L Albumin 2.4 L Procalcitonin 0.13 H 06/03/19 06/03/19 07:10 07:10 WBC 5.3 RBC 2.91 L Hgb 8.9 L Hct 26.5 L MCV 91.1 MCH 30.6 MCHC 33.6 RDW 12.7 Plt Count 457 H MPV 7.2 L Absolute Neuts (auto) 3.5 Neutrophils % 66.9 Lymphocytes % 17.8 Monocytes % 5.4 Eosinophils % 8.5 H Basophils % 1.4 Sodium 141 Potassium 4.4 Chloride 107 Carbon Dioxide 27 Anion Gap 7 L BUN 12.0 Creatinine 0.7 Est GFR (CKD-EPI)AfAm 99.62 Est GFR (CKD-EPI)NonAf 85.95 Random Glucose 99 Calcium 8.5 Magnesium 2.0 Total Bilirubin 0.3 AST 26 ALT 55 Alkaline Phosphatase 134 H D Total Protein 5.5 L Albumin 2.6 L Procalcitonin Active Medications Generic Name Dose Route Start Last Admin Trade Name Freq PRN Reason Stop Dose Admin Amlodipine Besylate 2.5 mg 05/30/19 10:45 06/02/19 09:41 Norvasc - PO 2.5 mg DAILY RYAN Administration Artificial Tears 1 drop 05/31/19 11:18 05/31/19 15:13 Artificial Tears OU 1 drop BID PRN Administration DRY EYES Atorvastatin Calcium 10 mg 05/30/19 22:00 06/02/19 22:13 Lipitor - PO 10 mg HS RYAN Administration Enoxaparin Sodium 40 mg 05/30/19 11:00 06/02/19 09:42 Lovenox - SQ Not Given DAILY RYAN Piperacillin Sod/Tazobactam 50 mls @ 100 mls/hr 05/31/19 02:00 06/03/19 02:29 Sod 3.375 gm/ Dextrose IVPB 100 mls/hr Q8H-IV RYAN Administration Protocol Ibuprofen 800 mg 05/31/19 17:53 06/02/19 22:13 Motrin - PO 800 mg Q8H PRN Administration PAIN LEVEL 5-10 Loratadine 10 mg 05/30/19 10:35 06/02/19 22:13 Claritin - PO 10 mg DAILY PRN Administration ALLERGIES Lorazepam 0.5 mg 06/02/19 21:42 06/02/19 22:13 Ativan - PO 0.5 mg HS PRN Administration ANXIETY Oxybutynin Chloride 5 mg 05/30/19 14:30 06/02/19 09:42 Ditropan - PO 5 mg DAILY RYAN Administration Pantoprazole Sodium 20 mg 05/30/19 10:30 06/02/19 10:06 Protonix - PO 20 mg DAILY RYAN Administration Ramipril 10 mg 05/30/19 10:45 06/02/19 09:41 Altace - PO 10 mg DAILY RYAN Administration ASSESSMENT/PLAN: 74 year-old female with a PMH significant for HTN, HLD, thrombophlebitis, GERD, anxiety, and a chronically incarcerated recurrent ventral hernia s/p multiple repairs, most recent repair with abdominoplasty on 05/21/19. Admitted for sepsis. Sepsis s/p complex hernia repair and abdominoplasty on 05/21/19 --POD #13 --s/p I&D on 06/01 by surgery for pururulent drainage, distal left border of transverse incision; culture pending --afebrile, leukocytosis resolved --continue Zosyn (day #5) --ID following --surgery following Hypertension --BP stable --continue ramipril, amlodipine Hyperlipidemia --continue Lipitor Thrombophlebitis --not on meds GERD --continue protonix Anxiety --continue lorazepam FEN Fluids: PO intake adequate Electrolytes: replete as indicated Nutrition: regular diet DVT prophylaxis: subq lovenox, oob, ambulation Physical therapy Dispo: continues to require inpatient care. Full code. Visit type - Emergency Visit Emergency Visit: Yes ED Registration Date: 05/29/19 Care time: The patient presented to the Emergency Department on the above date and was hospitalized for further evaluation of their emergent condition. - New Patient This patient is new to me today: No - Critical Care Critical Care patient: No
[2019-06-03] MEDS ORDERED: PT OWN MED DRAWER 7, Y5N ONE (09:34)
[2019-06-03] MEDS: RAMIPRIL 5 MG CAPSULE (FP) PO SCH (09:57)
[2019-06-03] MEDS: amLODIPine BESYLATE 2.5 MG TABLET (FP) PO SCH (09:57)
[2019-06-03] MEDS: PANTOPRAZOLE 20 MG TABLET (FP) PO SCH (09:57)
[2019-06-03] MEDS: OXYBUTYNIN CHLORIDE 5 MG TABLET PO SCH (09:57)
[2019-06-03] MEDS: ENOXAPARIN NA (PORCINE) 40 MG/0.4 ML DISP.SYRIN SQ SCH (09:58)
[2019-06-03] MEDS: IBUPROFEN 400 MG TABLET (FP) PO PRN (16:41)
[2019-06-03] MEDS ORDERED: IBUPROFEN 400 MG TABLET (FP) PO ONE (21:27)
[2019-06-03] MEDS: LORATADINE 10 MG TABLET PO PRN (21:30)
[2019-06-03] MEDS: LORazepam 0.5 MG TABLET PO PRN (21:30)
[2019-06-03] MEDS: ATORVASTATIN CA 10 MG TABLET (FP) PO SCH (21:30)
[2019-06-04] MEDS: PIPERACILLIN/TAZOB 3.375 GM 3.375 GM in DEXTROSE 5%-WATER - 50 ML IVPB SCH ×3 (02:00→17:44)
[2019-06-04] MEDS ORDERED: PIPERACILLIN/TAZOBACTAM 3.375 GM VIAL IVPB ONE ×3 (03:08→17:33)
[2019-06-04] MEDS ORDERED: DEXTROSE 5%-WATER - 50 ML IVPB ONE ×3 (03:09→17:33)
--- NOTE | 2019-06-04 07:57 | PN ---
Physical Exam: SUBJECTIVE: Patient seen and examined at bedside. Denies pain. Denies fever, sweats, chills. Generally feeling well. OBJECTIVE: Vital Signs Period Temp Pulse Resp BP Sys/Bahena Pulse Ox Last 24 Hr 97.3 F-98.1 F 82-99 18-18 147-172/70-73 95-99 GENERAL: The patient is awake, alert, and fully oriented, in no acute distress. LUNGS: Breath sounds equal, clear to auscultation bilaterally, no wheezes, no crackles, no accessory muscle use. HEART: Regular rate and rhythm, S1, S2 ABDOMEN: Transverse incision edges well-approximated, no bleeding, no exudate; at distal edge on left, open wound packed with gauze with moderate serosanguinous fluid, no pus, no odor, mildly tender; umbilicus with necrotic tissue EXTREMITIES: 2+ pulses, warm, well-perfused, no edema. NEUROLOGICAL: Cranial nerves II through XII grossly intact. Normal speech Active Medications Generic Name Dose Route Start Last Admin Trade Name Freq PRN Reason Stop Dose Admin Amlodipine Besylate 2.5 mg 05/30/19 10:45 06/03/19 09:57 Norvasc - PO 2.5 mg DAILY RYAN Administration Artificial Tears 1 drop 05/31/19 11:18 05/31/19 15:13 Artificial Tears OU 1 drop BID PRN Administration DRY EYES Atorvastatin Calcium 10 mg 05/30/19 22:00 06/03/19 21:30 Lipitor - PO 10 mg HS RYAN Administration Enoxaparin Sodium 40 mg 05/30/19 11:00 06/03/19 09:58 Lovenox - SQ Not Given DAILY RYAN Piperacillin Sod/Tazobactam 50 mls @ 100 mls/hr 05/31/19 02:00 06/04/19 02:00 Sod 3.375 gm/ Dextrose IVPB 100 mls/hr Q8H-IV RYAN Administration Protocol Ibuprofen 800 mg 05/31/19 17:53 06/03/19 16:41 Motrin - PO 800 mg Q8H PRN Administration PAIN LEVEL 5-10 Loratadine 10 mg 05/30/19 10:35 06/03/19 21:30 Claritin - PO 10 mg DAILY PRN Administration ALLERGIES Lorazepam 0.5 mg 06/02/19 21:42 06/03/19 21:30 Ativan - PO 0.5 mg HS PRN Administration ANXIETY Oxybutynin Chloride 5 mg 05/30/19 14:30 06/03/19 09:57 Ditropan - PO 5 mg DAILY RYAN Administration Pantoprazole Sodium 20 mg 05/30/19 10:30 06/03/19 09:57 Protonix - PO 20 mg DAILY RYAN Administration Ramipril 10 mg 05/30/19 10:45 06/03/19 09:57 Altace - PO 10 mg DAILY RYAN Administration ASSESSMENT/PLAN 74 year-old female with a PMH significant for HTN, HLD, thrombophlebitis, GERD, anxiety, and a chronically incarcerated recurrent ventral hernia s/p multiple repairs, most recent repair with abdominoplasty on 05/21/19. Admitted for sepsis. Sepsis s/p complex hernia repair and abdominoplasty on 05/21/19 --POD #13 --1013 fluid (+) staph --continue Zosyn (day #5) --ID following --surgery following Hypertension --BP stable --continue ramipril, amlodipine Hyperlipidemia --continue Lipitor Thrombophlebitis --not on meds GERD --continue protonix Anxiety --continue lorazepam FEN Fluids: PO intake adequate Electrolytes: replete as indicated Nutrition: regular diet DVT prophylaxis: subq lovenox, oob, ambulation Physical therapy Dispo: continues to require inpatient care. Full code. Visit type - Emergency Visit Emergency Visit: Yes ED Registration Date: 05/29/19 Care time: The patient presented to the Emergency Department on the above date and was hospitalized for further evaluation of their emergent condition. - New Patient This patient is new to me today: No - Critical Care Critical Care patient: No
[2019-06-04] MEDS: ENOXAPARIN NA (PORCINE) 40 MG/0.4 ML DISP.SYRIN SQ SCH (09:37)
[2019-06-04] MEDS: RAMIPRIL 5 MG CAPSULE (FP) PO SCH (09:37)
[2019-06-04] MEDS: amLODIPine BESYLATE 2.5 MG TABLET (FP) PO SCH (09:37)
[2019-06-04] MEDS: PANTOPRAZOLE 20 MG TABLET (FP) PO SCH (09:37)
[2019-06-04] MEDS: OXYBUTYNIN CHLORIDE 5 MG TABLET PO SCH (09:37)
--- NOTE | 2019-06-04 12:25 | DS ---
Physical Exam: SUBJECTIVE: Patient seen and examined. [place] drain placed yesterday. OBJECTIVE: Vital Signs Period Temp Pulse Resp BP Sys/Bahena Pulse Ox Last 24 Hr 97.3 F-98.3 F 82-102 17-18 130-172/70-74 95-99 PHYSICAL EXAM GENERAL: The patient is awake, alert, and fully oriented, in no acute distress. LUNGS: Breath sounds equal, clear to auscultation bilaterally, no wheezes, no crackles, no accessory muscle use. HEART: Regular rate and rhythm, S1, S2 ABDOMEN: Transverse incision edges well-approximated, no bleeding, no exudate; at distal edge on left, bautista drain, serosanguinous drainage EXTREMITIES: 2+ pulses, warm, well-perfused, no edema. NEUROLOGICAL: Cranial nerves II through XII grossly intact. Normal speech LABS CBCD WBC 5.3 K/mm3 (4.0-10.8) 06/03/19 07:10 RBC 2.91 M/mm3 (3.60-5.2) L 06/03/19 07:10 Hgb 8.9 GM/dl (10.7-15.3) L 06/03/19 07:10 Hct 26.5 % (32.4-45.2) L 06/03/19 07:10 MCV 91.1 fl (80-96) 06/03/19 07:10 MCHC 33.6 g/dl (32.0-36.0) 06/03/19 07:10 RDW 12.7 % (11.6-15.6) 06/03/19 07:10 Plt Count 457 K/MM3 (134-434) H 06/03/19 07:10 MPV 7.2 fl (7.5-11.1) L 06/03/19 07:10 CMP Sodium 141 mmol/L (136-145) 06/03/19 07:10 Potassium 4.4 mmol/L (3.5-5.1) 06/03/19 07:10 Chloride 107 mmol/L (98-107) 06/03/19 07:10 Carbon Dioxide 27 mmol/L (21-32) 06/03/19 07:10 Anion Gap 7 MMOL/L (8-16) L 06/03/19 07:10 BUN 12.0 mg/dl (7-18) 06/03/19 07:10 Creatinine 0.7 mg/dl (0.55-1.3) 06/03/19 07:10 Calcium 8.5 mg/dl (8.5-10) 06/03/19 07:10 Total Bilirubin 0.3 mg/dl (0.2-1) 06/03/19 07:10 AST 26 U/L (15-37) 06/03/19 07:10 ALT 55 U/L (13-61) 06/03/19 07:10 Alkaline Phosphatase 134 U/L (45-117) H D 06/03/19 07:10 Total Protein 5.5 g/dl (6.4-8.2) L 06/03/19 07:10 Albumin 2.6 g/dl (3.4-5.0) L 06/03/19 07:10 HOSPITAL COURSE: Date of Admission:05/29/19 Date of Discharge: 06/04/19 Pre hospital course 74 year-old female with a PMH significant for HTN, HLD, thrombophlebitis, GERD, anxiety, and a chronically incarcerated recurrent ventral hernia s/p multiple repairs, most recently on 05/21/[address] Rabago. At the same time patient underwent an abdominoplasty with Dr. Jeffrey. She was discharged on 05/22 with two DENISA drains in place and with a prescription for augmentin for 7 days. Patient stopped taking the augmentin after 2-3 days due to stomach upset. She has been emptying her drains of thin, reddish/pinkish fluid, has not seen any pus. ER course (1) WBC 12.4k, p121 (2) Unasyn x 1; NS x 1L Subsequent hospital course 74 year-old female with a PMH significant for HTN, HLD, thrombophlebitis, GERD, anxiety, and a chronically incarcerated recurrent ventral hernia s/p multiple repairs, most recent repair with abdominoplasty on 05/21/19. Admitted for sepsis. Sepsis s/p complex hernia repair and abdominoplasty on 05/21/19 --POD #14 --10 fluid (+) staph aureus --continue Zosyn (day #6) --PICC line placed today; patient will start daily infusions of ceftriaxone 1g x 8 additional doses to complete 14 days of treatment; will come to [facility] for infusions Hypertension --BP stable --continued ramipril, amlodipine Hyperlipidemia --continued Lipitor Thrombophlebitis --not on meds GERD --continued protonix Anxiety --continued lorazepam Minutes to complete discharge: 35 Discharge Summary Problems reviewed: Yes Reason For Visit: HX OF VENTRAL HERNIA REPAIR-ABDOMINAL PAIN-DEHYDRI Current Active Problems Abdominal pain (Acute) Dehydration (Acute) H/O ventral hernia repair (Acute) Leukocytosis (Acute) S/P abdominoplasty (Acute) Condition: Improved - Instructions Diet, Activity, Other Instructions: You now have a PICC line and will be coming back to [facility] for daily infusions of an antibiotic. Referrals: Catalina Avila MD [Staff Physician] - Disposition: HOME - Home Medications Comprehensive Discharge Medication List: Ambulatory Orders Amlodipine Besylate 2.5 mg PO DAILY 05/09/19 Cetirizine HCl [Zyrtec -] 10 mg PO DAILY PRN 05/09/19 Lorazepam 0.5 mg PO DAILY PRN 05/09/19 Omeprazole 20 mg PO AM 05/09/19 Oxybutynin Chloride 5 mg PO DAILY 05/09/19 Ramipril 10 mg PO DAILY 05/09/19 Simvastatin 20 mg PO HS 05/09/19 Amox-Tr/K Cl [Augmentin 875-125mg Tablet -] 1 tab PO BIDWM #14 tablet 05/22/19 Ibuprofen [Motrin -] 800 mg PO Q6H PRN tablet 05/22/19 This patient is new to me today: No Emergency Visit: Yes ED Registration Date: 05/29/19 Care time: The patient presented to the Emergency Department on the above date and was hospitalized for further evaluation of their emergent condition. Critical Care patient: No - Discharge Referral Referred to [facility] Med P.C.: No
[2019-06-04] MEDS: IBUPROFEN 400 MG TABLET (FP) PO PRN ×2 (15:00→21:42)
--- NOTE | 2019-06-04 15:07 | PN ---
Progress Note, Physician History of Present Illness: patient doing well awaiting for sensitivities wound healing well - Current Medication List Current Medications: Active Medications Amlodipine Besylate (Norvasc -) 2.5 mg PO DAILY [facility] Last Admin: 06/04/19 09:37 Dose: 2.5 mg Artificial Tears (Artificial Tears) 1 drop OU BID PRN PRN Reason: DRY EYES Last Admin: 05/31/19 15:13 Dose: 1 drop Atorvastatin Calcium (Lipitor -) 10 mg PO HS [facility] Last Admin: 06/03/19 21:30 Dose: 10 mg Enoxaparin Sodium (Lovenox -) 40 mg SQ DAILY [facility] Last Admin: 06/04/19 09:37 Dose: Not Given Piperacillin Sod/Tazobactam (Sod 3.375 gm/ Dextrose) 50 mls @ 100 mls/hr IVPB Q8H-IV RYAN; Protocol Last Admin: 06/04/19 09:37 Dose: 100 mls/hr Ibuprofen (Motrin -) 800 mg PO Q8H PRN PRN Reason: PAIN LEVEL 5-10 Last Admin: 06/03/19 16:41 Dose: 800 mg Loratadine (Claritin -) 10 mg PO DAILY PRN PRN Reason: ALLERGIES Last Admin: 06/03/19 21:30 Dose: 10 mg Lorazepam (Ativan -) 0.5 mg PO HS PRN PRN Reason: ANXIETY Last Admin: 06/03/19 21:30 Dose: 0.5 mg Oxybutynin Chloride (Ditropan -) 5 mg PO DAILY [facility] Last Admin: 06/04/19 09:37 Dose: 5 mg Pantoprazole Sodium (Protonix -) 20 mg PO DAILY [facility] Last Admin: 06/04/19 09:37 Dose: 20 mg Ramipril (Altace -) 10 mg PO DAILY [facility] Last Admin: 06/04/19 09:37 Dose: 10 mg - Objective Vital Signs: Vital Signs Temperature 98.0 F 06/04/19 14:24 Pulse Rate 84 06/04/19 14:24 Respiratory Rate 18 06/04/19 14:24 Blood Pressure 144/64 06/04/19 14:24 O2 Sat by Pulse Oximetry (%) 97 06/04/19 14:24 Constitutional: Yes: No Distress, Calm Cardiovascular: Yes: Regular Rate and Rhythm Respiratory: Yes: Regular, CTA Bilaterally Gastrointestinal: Yes: Normal Bowel Sounds, Soft Musculoskeletal: Yes: WNL Extremities: Yes: WNL Integumentary: Yes: Other Wound/Incision: Yes: Clean/Dry, Dressing Dry and Intact Neurological: Yes: Alert, Oriented Labs: CBC, BMP 06/03/19 07:10 06/03/19 07:10 INR, PTT INR 1.22 (0.82-1.09) 05/30/19 07:20 Assessment/Plan 74 y.o. female with PMH of HTN, thrombophlebitis, anxiety, GERD, HLD, s/p MARY CARMEN/ BSO, s/p appendectomy/cholecystectomy, recurrent ventral hernia s/p repair x 3, last of which was on 05/21/19 with abdominoplasty presenting with c/o weakness, episodes of diarrhea with leukocytosis and low grade fever. Recurrent ventral hernia s/p repair/abdominoplasty POD#10 Leukocytosis Fever Elevated LFTs wound infection plan we will continue abx await for sensitivities patient will need half-way abx rest as per the team
--- NOTE | 2019-06-04 15:21 | PN ---
Progress Note, Physician History of Present Illness: stable no new issues sensitivities noted - Current Medication List Current Medications: Active Medications Amlodipine Besylate (Norvasc -) 2.5 mg PO DAILY [facility] Last Admin: 06/04/19 09:37 Dose: 2.5 mg Artificial Tears (Artificial Tears) 1 drop OU BID PRN PRN Reason: DRY EYES Last Admin: 05/31/19 15:13 Dose: 1 drop Atorvastatin Calcium (Lipitor -) 10 mg PO HS [facility] Last Admin: 06/03/19 21:30 Dose: 10 mg Enoxaparin Sodium (Lovenox -) 40 mg SQ DAILY [facility] Last Admin: 06/04/19 09:37 Dose: Not Given Piperacillin Sod/Tazobactam (Sod 3.375 gm/ Dextrose) 50 mls @ 100 mls/hr IVPB Q8H-IV [facility]; Protocol Last Admin: 06/04/19 09:37 Dose: 100 mls/hr Ibuprofen (Motrin -) 800 mg PO Q8H PRN PRN Reason: PAIN LEVEL 5-10 Last Admin: 06/03/19 16:41 Dose: 800 mg Loratadine (Claritin -) 10 mg PO DAILY PRN PRN Reason: ALLERGIES Last Admin: 06/03/19 21:30 Dose: 10 mg Lorazepam (Ativan -) 0.5 mg PO HS PRN PRN Reason: ANXIETY Last Admin: 06/03/19 21:30 Dose: 0.5 mg Oxybutynin Chloride (Ditropan -) 5 mg PO DAILY [facility] Last Admin: 06/04/19 09:37 Dose: 5 mg Pantoprazole Sodium (Protonix -) 20 mg PO DAILY [facility] Last Admin: 06/04/19 09:37 Dose: 20 mg Ramipril (Altace -) 10 mg PO DAILY [facility] Last Admin: 06/04/19 09:37 Dose: 10 mg - Objective Vital Signs: Vital Signs Temperature 98.0 F 06/04/19 14:24 Pulse Rate 84 06/04/19 14:24 Respiratory Rate 18 06/04/19 14:24 Blood Pressure 144/64 06/04/19 14:24 O2 Sat by Pulse Oximetry (%) 97 06/04/19 14:24 Constitutional: Yes: No Distress, Calm, Obese Cardiovascular: Yes: S1, S2 Respiratory: Yes: Regular, CTA Bilaterally Gastrointestinal: Yes: Normal Bowel Sounds, Soft Musculoskeletal: Yes: WNL Extremities: Yes: WNL Integumentary: Yes: Other Wound/Incision: Yes: Dressing Dry and Intact Neurological: Yes: Alert, Oriented Psychiatric: Yes: Alert, Oriented Labs: CBC, BMP 06/03/19 07:10 06/03/19 07:10 INR, PTT INR 1.22 (0.82-1.09) 05/30/19 07:20 Assessment/Plan 74 y.o. female with PMH of HTN, thrombophlebitis, anxiety, GERD, HLD, s/p MARY CARMEN/ BSO, s/p appendectomy/cholecystectomy, recurrent ventral hernia s/p repair x 3, last of which was on 05/21/19 with abdominoplasty presenting with c/o weakness, episodes of diarrhea with leukocytosis and low grade fever. Recurrent ventral hernia s/p repair/abdominoplasty POD#10 Leukocytosis Fever Elevated LFTs wound infection plan will continue abx i suggest that patient get 2 weeks of ceftriaxone wound care rest as per the team
[2019-06-04] MEDS: LORazepam 0.5 MG TABLET PO PRN (21:42)
[2019-06-04] MEDS: ATORVASTATIN CA 10 MG TABLET (FP) PO SCH (21:42)
[2019-06-05] MEDS ORDERED: PIPERACILLIN/TAZOBACTAM 3.375 GM VIAL IVPB ONE ×3 (00:39→17:09)
[2019-06-05] MEDS ORDERED: DEXTROSE 5%-WATER - 50 ML IVPB ONE ×3 (00:39→17:09)
[2019-06-05] MEDS: PIPERACILLIN/TAZOB 3.375 GM 3.375 GM in DEXTROSE 5%-WATER - 50 ML IVPB SCH ×2 (01:57→10:30)
[2019-06-05] MEDS: PANTOPRAZOLE 20 MG TABLET (FP) PO SCH (09:00)
[2019-06-05] MEDS: amLODIPine BESYLATE 2.5 MG TABLET (FP) PO SCH (09:45)
[2019-06-05] MEDS: RAMIPRIL 5 MG CAPSULE (FP) PO SCH (09:45)
[2019-06-05] MEDS: OXYBUTYNIN CHLORIDE 5 MG TABLET PO SCH (09:45)
[2019-06-05] MEDS: ENOXAPARIN NA (PORCINE) 40 MG/0.4 ML DISP.SYRIN SQ SCH (09:46)
[2019-06-05 14:14] VITALS: BP 124/65; PULSE 78; TEMP 99.7
--- NOTE | 2019-06-05 14:39 | PN ---
Progress Note, Physician History of Present Illness: stable no new issues drain placed at the wound site - Current Medication List Current Medications: Active Medications Amlodipine Besylate (Norvasc -) 2.5 mg PO DAILY [facility] Last Admin: 06/05/19 09:45 Dose: 2.5 mg Artificial Tears (Artificial Tears) 1 drop OU BID PRN PRN Reason: DRY EYES Last Admin: 05/31/19 15:13 Dose: 1 drop Atorvastatin Calcium (Lipitor -) 10 mg PO HS [facility] Last Admin: 06/04/19 21:42 Dose: 10 mg Enoxaparin Sodium (Lovenox -) 40 mg SQ DAILY [facility] Last Admin: 06/05/19 09:46 Dose: Not Given Piperacillin Sod/Tazobactam (Sod 3.375 gm/ Dextrose) 50 mls @ 100 mls/hr IVPB Q8H-IV [facility]; Protocol Last Admin: 06/05/19 01:57 Dose: 100 mls/hr Ibuprofen (Motrin -) 800 mg PO Q8H PRN PRN Reason: PAIN LEVEL 5-10 Last Admin: 06/04/19 21:42 Dose: 800 mg Loratadine (Claritin -) 10 mg PO DAILY PRN PRN Reason: ALLERGIES Last Admin: 06/03/19 21:30 Dose: 10 mg Lorazepam (Ativan -) 0.5 mg PO HS PRN PRN Reason: ANXIETY Last Admin: 06/04/19 21:42 Dose: 0.5 mg Oxybutynin Chloride (Ditropan -) 5 mg PO DAILY [facility] Last Admin: 06/05/19 09:45 Dose: 5 mg Pantoprazole Sodium (Protonix -) 20 mg PO DAILY [facility] Last Admin: 06/05/19 09:00 Dose: 20 mg Ramipril (Altace -) 10 mg PO DAILY [facility] Last Admin: 06/05/19 09:45 Dose: 10 mg - Objective Vital Signs: Vital Signs Temperature 99.7 F H 06/05/19 14:00 Pulse Rate 78 06/05/19 14:00 Respiratory Rate 19 06/05/19 14:00 Blood Pressure 124/65 06/05/19 14:00 O2 Sat by Pulse Oximetry (%) 96 06/05/19 14:00 Constitutional: Yes: No Distress, Calm Cardiovascular: Yes: Regular Rate and Rhythm Respiratory: Yes: Regular, CTA Bilaterally Gastrointestinal: Yes: Normal Bowel Sounds, Soft Musculoskeletal: Yes: WNL Extremities: Yes: WNL Wound/Incision: Yes: Dressing Dry and Intact, Other (drain in place) Psychiatric: Yes: Alert, Oriented Labs: CBC, BMP 06/03/19 07:10 06/03/19 07:10 INR, PTT INR 1.22 (0.82-1.09) 05/30/19 07:20 Assessment/Plan 74 y.o. female with PMH of HTN, thrombophlebitis, anxiety, GERD, HLD, s/p MARY CARMEN/ BSO, s/p appendectomy/cholecystectomy, recurrent ventral hernia s/p repair x 3, last of which was on 05/21/19 with abdominoplasty presenting with c/o weakness, episodes of diarrhea with leukocytosis and low grade fever. Recurrent ventral hernia s/p repair/abdominoplasty POD#10 Leukocytosis Fever Elevated LFTs wound infection plan will continue abx i suggest that patient get 2 weeks of ceftriaxone wound care rest as per the team
== END 2019-06-05 18:00 | disposition home or self-care (01) | DRG 856 ==
LOC: EDBD → FER 17:24 → FM/S 21:45
PROVIDERS: ADMIT Internal Medicine; ATTEND Nurse Practitioner Acute Care
PROC: 0J980ZZ Drainage of Abdomen Subcutaneous Tissue and Fascia, Open Approach (ICD-10-PCS; 2019-06-01)
PROC: 02HV33Z Insertion of Infusion Device into Superior Vena Cava, Percutaneous Approach (ICD-10-PCS; principal; 2019-06-05)
PROC: B518ZZA Fluoroscopy of Superior Vena Cava, Guidance (ICD-10-PCS; 2019-06-05)
DX: T81.44XA Sepsis following a procedure, initial encounter (principal); A41.01 Sepsis due to Methicillin susceptible Staphylococcus aureus; E86.0 Dehydration; I10 Essential (primary) hypertension; E78.5 Hyperlipidemia, unspecified; K21.9 Gastro-esophageal reflux disease without esophagitis; F41.9 Anxiety disorder, unspecified; R19.7 Diarrhea, unspecified; R94.5 Abnormal results of liver function studies; I80.8 Phlebitis and thrombophlebitis of other sites; R32 Unspecified urinary incontinence; J30.9 Allergic rhinitis, unspecified; Z87.19 Personal history of other diseases of the digestive system; D72.829 Elevated white blood cell count, unspecified; R50.9 Fever, unspecified; D64.9 Anemia, unspecified
CPT/HCPCS: 36415; 36569; 71045-TC-FY; 74176-TC; 77001-TC-FY; 80048; 80053; 80076; 81003; 81015; 82272; 82308; 82550; 82728; 83540; 83550; 83605; 83690; 83735; 84100; 84484; 85025; 85027; 85610; 85730; 86850; 86900; 86901; 87040; 87070; 87086; 87186; 87205; 87324; 87449; 93005; 97116-GP; 97161-GP; 99284-25; C1751; J0131; J7030

== ENCOUNTER 2019-06-06 12:01 | Day surgery (SDC) | payer OTHER ==
[2019-06-06] MEDS ORDERED: CEFTRIAXONE 1 G/50 ML PREMIX 50 ML IVPB ONE (12:15)
[2019-06-06 13:35] VITALS: BP 162/78; PULSE 94; TEMP 97.8
== END 2019-06-06 13:35 | disposition home or self-care (01) ==
LOC: EDBD → FINFUSION 12:01 → FM/S 12:03 → EDSTATUS 12:48 → FINFUSION 13:35
PROVIDERS: ATTEND Nurse Practitioner Acute Care
DX: T81.40XA Infection following a procedure, unspecified, initial encounter (principal); B95.7 Other staphylococcus as the cause of diseases classified elsewhere; Y83.8 Other surgical procedures as the cause of abnormal reaction of the patient, or of later complication, without mention of misadventure at the time of the procedure; Y92.9 Unspecified place or not applicable
CPT/HCPCS: 96365

== ENCOUNTER 2019-06-07 12:09 | Day surgery (SDC) | payer OTHER ==
[2019-06-07] MEDS ORDERED: cefTRIAXone 1 GM/50 ML BAG (PRE-DOCKED) IVPB SCH ×2 (12:30→12:45)
[2019-06-07 12:38] VITALS: TEMP 98.6
[2019-06-07 13:27] VITALS: BP 138/76; PULSE 74
== END 2019-06-07 13:25 | disposition home or self-care (01) ==
LOC: EDBD → FINFUSION 12:09 → FM/S 12:12 → FINFUSION 13:25
PROVIDERS: ATTEND Nurse Practitioner Acute Care
DX: T81.40XA Infection following a procedure, unspecified, initial encounter (principal); B95.7 Other staphylococcus as the cause of diseases classified elsewhere; Y83.8 Other surgical procedures as the cause of abnormal reaction of the patient, or of later complication, without mention of misadventure at the time of the procedure; Y92.9 Unspecified place or not applicable
CPT/HCPCS: 96365

== ENCOUNTER 2019-06-08 11:37 | Day surgery (SDC) | payer OTHER ==
[2019-06-08] MEDS ORDERED: CEFTRIAXONE 1,000 MG in DEXTROSE 5%-WATER - 50 ML IVPB ONE (12:04)
[2019-06-08 12:15] VITALS: BP 130/70; PULSE 74; TEMP 98.6
== END 2019-06-08 12:16 | disposition home or self-care (01) ==
LOC: EDBD → FINFUSION 11:37 → FM/S 11:39 → FINFUSION 12:16 → FM/S 12:16
PROVIDERS: ATTEND Nurse Practitioner Acute Care
DX: T81.40XA Infection following a procedure, unspecified, initial encounter (principal); B95.7 Other staphylococcus as the cause of diseases classified elsewhere; Y83.8 Other surgical procedures as the cause of abnormal reaction of the patient, or of later complication, without mention of misadventure at the time of the procedure; Y92.9 Unspecified place or not applicable
CPT/HCPCS: 96365; 96366

== ENCOUNTER 2019-06-09 12:01 | Day surgery (SDC) | payer OTHER ==
[2019-06-09] MEDS ORDERED: CEFTRIAXONE 1 G/50 ML PREMIX 50 ML IVPB ONE (12:15)
[2019-06-09 13:03] VITALS: BP 145/58; PULSE 68; TEMP 97.8
== END 2019-06-09 13:07 | disposition home or self-care (01) ==
LOC: EDBD → FINFUSION 12:01 → FM/S 12:02 → FINFUSION 13:07
PROVIDERS: ATTEND Nurse Practitioner Acute Care
DX: T81.40XA Infection following a procedure, unspecified, initial encounter (principal); B95.7 Other staphylococcus as the cause of diseases classified elsewhere; Y83.8 Other surgical procedures as the cause of abnormal reaction of the patient, or of later complication, without mention of misadventure at the time of the procedure; Y92.9 Unspecified place or not applicable
CPT/HCPCS: 96365

== ENCOUNTER 2019-06-10 12:04 | Day surgery (SDC) | payer OTHER ==
[2019-06-10] MEDS ORDERED: CEFTRIAXONE 1 G/50 ML PREMIX 50 ML IVPB ONE (12:15)
[2019-06-10 13:44] LABS: BASO % 0.8 % (0-2.0); EOS % 3.6 % (0-4.5); HEMATOCRIT 30.1 % (32.4-45.2); HEMOGLOBIN 9.9 GM/dl (10.7-15.3); LYMPH % 17.8 % (8-40); MCH 29.9 pg (25.7-33.7); MEAN CELL VOLUME 90.4 fl (80-96); MEAN PLT VOLUME 7.3 fl (7.5-11.1); MONO % 3.9 % (3.8-10.2); NEUT % 73.9 % (42.8-82.8); PLATELET COUNT 460 K/MM3 (134-434); RBC 3.33 M/mm3 (3.60-5.2); RDW 13.2 % (11.6-15.6); WHITE BLOOD COUNT 6.8 K/mm3 (4.0-10.8)
[2019-06-10 14:08] LABS: ALBUMIN 3.4 g/dl (3.4-5.0); BILIRUBIN,TOTAL 0.4 mg/dl (0.2-1); CALCIUM 8.7 mg/dl (8.5-10); CREATININE 0.6 mg/dl (0.55-1.3); MAGNESIUM 1.9 mg/dL (1.8-2.4); POTASSIUM 3.8 mmol/L (3.5-5.1); TOT PROT 6.8 g/dl (6.4-8.2)
[2019-06-10 14:13] VITALS: BP 140/78; PULSE 90; TEMP 98.1
== END 2019-06-10 13:45 | disposition home or self-care (01) ==
LOC: EDBD → FINFUSION 12:04 → FM/S 12:07 → FINFUSION 13:45
PROVIDERS: ATTEND Nurse Practitioner Acute Care
DX: T81.40XA Infection following a procedure, unspecified, initial encounter (principal); B95.7 Other staphylococcus as the cause of diseases classified elsewhere; Y83.8 Other surgical procedures as the cause of abnormal reaction of the patient, or of later complication, without mention of misadventure at the time of the procedure; Y92.9 Unspecified place or not applicable
CPT/HCPCS: 36415; 80053; 83735; 85025; 96365

== ENCOUNTER 2019-06-11 11:54 | Day surgery (SDC) | payer OTHER ==
[2019-06-11] MEDS ORDERED: CEFTRIAXONE 1 G/50 ML PREMIX 50 ML IVPB ONE (12:15)
[2019-06-11 12:29] VITALS: BP 132/75; PULSE 99; TEMP 98.1; BMI 27.3
== END 2019-06-11 13:30 | disposition home or self-care (01) ==
LOC: EDBD → FINFUSION 11:54 → FM/S 11:54 → FINFUSION 13:30
PROVIDERS: ATTEND Nurse Practitioner Acute Care
DX: T81.40XD Infection following a procedure, unspecified, subsequent encounter (principal); B95.7 Other staphylococcus as the cause of diseases classified elsewhere; Y83.8 Other surgical procedures as the cause of abnormal reaction of the patient, or of later complication, without mention of misadventure at the time of the procedure; Y92.9 Unspecified place or not applicable
CPT/HCPCS: 96365

== ENCOUNTER 2019-06-12 11:59 | Day surgery (SDC) | payer OTHER ==
[2019-06-12] MEDS ORDERED: CEFTRIAXONE 1 G/50 ML PREMIX 50 ML IVPB ONE (12:15)
[2019-06-12 12:41] VITALS: BP 121/69; PULSE 70; TEMP 98.2
== END 2019-06-12 12:43 | disposition home or self-care (01) ==
LOC: EDBD → FINFUSION 11:59 → FM/S 12:00 → FINFUSION 12:43
PROVIDERS: ATTEND Nurse Practitioner Acute Care
DX: T81.40XD Infection following a procedure, unspecified, subsequent encounter (principal); B95.7 Other staphylococcus as the cause of diseases classified elsewhere; Y83.8 Other surgical procedures as the cause of abnormal reaction of the patient, or of later complication, without mention of misadventure at the time of the procedure; Y92.9 Unspecified place or not applicable
CPT/HCPCS: 96365

== ENCOUNTER 2019-06-13 11:12 | Day surgery (SDC) | payer OTHER ==
[2019-06-13] MEDS ORDERED: CEFTRIAXONE 1 G/50 ML PREMIX 50 ML IVPB ONE (11:30)
[2019-06-13 11:58] VITALS: BP 135/62; PULSE 86; TEMP 97.9
== END 2019-06-13 11:19 | disposition home or self-care (01) ==
LOC: EDBD → FINFUSION 11:12 → FM/S 11:17 → FINFUSION 11:19
PROVIDERS: ATTEND Nurse Practitioner Acute Care
DX: T81.40XD Infection following a procedure, unspecified, subsequent encounter (principal); B95.7 Other staphylococcus as the cause of diseases classified elsewhere; Y83.8 Other surgical procedures as the cause of abnormal reaction of the patient, or of later complication, without mention of misadventure at the time of the procedure; Y92.9 Unspecified place or not applicable
CPT/HCPCS: 96365; 96366